=== PATIENT | female | born 1930 | race Hispanic/Latino ===

== ENCOUNTER 2017-01-29 12:12 | Inpatient (IN) | payer MEDICARE, BC ==
[2017-01-29 12:18] VITALS: BMI 18.6
[2017-01-29] MEDS ORDERED: TDAP Vaccine 0.5 mL Syr IM ONE (13:02)
[2017-01-29] MEDS ORDERED: Sodium Chloride 0.9% 500 ML IV STA (13:02)
--- NOTE | 2017-01-29 13:15 | ED PDOC ---
Arrival/HPI - General Chief Complaint: Trauma Time Seen by Provider: 01/29/17 12:57 Historian: Patient - Critical Care Critical Care Minutes: 30 minutes - History of Present Illness Narrative History of Present Illness (Text): 01/29/17 12:49 Sirena Alicea is an 86 year old female, whose past medical history includes severe peripheral vascular disease, hypertension, chronic kidney disease, and hyperlipidemia, who presents to the emergency department complaining of a syncopal episode prior to arrival. Patient was found in kitchen but cannot recall event. Patient is now complaining of bilateral upper extremity discomfort , headache, and nausea. Patient denies any other complaints at this time. PMD: Dr. Green Time/Duration: Prior to Arrival Symptom Course: Unchanged Activities at Onset: Light Context: Home Past Medical History - Provider Review Nursing Documentation Reviewed: Yes - Infectious Disease Hx of Infectious Diseases: None - Tetanus Immunization Tetanus Immunization: Unknown - Cardiac Hx Hypertension: Yes - Pulmonary Hx Chronic Obstructive Pulmonary Disease (COPD): Yes - Neurological Hx Neurological Disorder: No - HEENT Hx HEENT Disorder: Yes (WEARS RX GLASSES FOR READING) - Renal Hx Renal Disorder: Yes - Endocrine/Metabolic Hx Hypothyroidism: Yes - Hematological/Oncological Hx Blood Disorders: Yes Hx Anemia: Yes - Integumentary Hx Dermatological Disorder: Yes (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 - Anesthesia Hx Anesthesia: Yes Hx Anesthesia Reactions: No Hx Malignant Hyperthermia: No - Suicidal Assessment Feels Threatened In Home Enviroment: No Family/Social History - Physician Review Nursing Documentation Reviewed: Yes Family/Social History: No Known Family HX Smoking Status: Former Smoker Hx Alcohol Use: No Hx Substance Use: No Hx Substance Use Treatment: No Allergies/Home Meds Allergies/Adverse Reactions: Allergies Penicillins Allergy (Verified 04/01/16 11:13) ANAPHYLAXIS Home Medications: Home Meds Medication Instructions Recorded Confirmed Aspirin [Aspirin Chewable] 81 mg PO DAILY 03/04/13 04/02/16 Losartan [Cozaar] 100 mg PO DAILY 03/04/13 01/29/17 Vitamin D 50, 000 50,000 iu PO MON 03/04/13 01/29/17 Albuterol Sulfate [Proair 90 mcg IH Q6H PRN 03/29/16 04/02/16 Respiclick] Allopurinol [Zyloprim] 100 mg PO DAILY 03/29/16 01/29/17 Atorvastatin [Lipitor] 80 mg PO DAILY 03/29/16 04/02/16 Clopidogrel [Plavix] 75 mg PO DAILY 03/29/16 04/02/16 Fluticasone Propionate [Flonase] 2 spr NS DAILY 03/29/16 04/02/16 Furosemide [Lasix] 40 mg PO DAILY 03/29/16 04/02/16 LORazepam [Ativan] 0.5 mg PO DAILY PRN 03/29/16 04/02/16 Levothyroxine [Synthroid] 0.025 mg PO DAILY 03/29/16 01/29/17 Nicotine 14 mg/24 hr [Nicoderm CQ] 14 mg TD DAILY 03/29/16 04/02/16 Pantoprazole [Protonix EC Tab] 40 mg PO DAILY 03/29/16 01/29/17 Sodium Bicarbonate Tab 650 mg PO Q4H PRN 03/29/16 04/02/16 Thiamine Mononitrate [Vitamin B-1] 100 mg PO DAILY 03/29/16 01/29/17 amLODIPine [Norvasc] 10 mg PO DAILY 03/29/16 01/29/17 carBAMazepine [Tegretol] 200 mg PO DAILY 03/29/16 04/02/16 cloNIDine [Catapres] 0.1 mg PO BID PRN 03/29/16 01/29/17 oxyCODONE/Acetaminophen [Percocet 1 tab PO BID 03/29/16 01/29/17 5/325 mg Tab] Paricalcitol [Zemplar] 1 cap PO QOTHERDAY 01/29/17 01/29/17 Physical Exam - Physical Exam Narrative Physical Exam (Text): - Review of Systems Constitutional: Syncopal Episode. absent: Fatigue, Weight Change, Fevers Eyes: Normal ENT: Normal Respiratory: Normal absent: SOB, Cough, Sputum Cardiovascular: Normal absent: Chest pain, Palpitations, Syncope Gastrointestinal: Nausea. absent: Abdominal pain, Diarrhea, Vomiting Genitourinary: Normal. absent: Dysuria, Frequency, Hematuria Musculoskeletal: Upper extremity discomfort. absent: Arthralgias, Back Pain, Neck Pain Skin: Normal Neurological: Headache. absent: Focal Weakness Endocrine: Normal Hemo/Lymphatic: Normal Psychiatric: Normal - Physical exam Patient appears age appropriate, speaking full sentences without difficulty - Systems Exam Head: Present: Atraumatic, Normocephalic Pupils: Present: PERRL Extraocular Muscles: Present: EOMI Conjunctiva: Present: Normal Mouth: Present: Moist Mucous Membranes Neck: Present: Normal Range of Motion. No: MIDLINE TENDERNESS, Paraspinal Tenderness Respiratory/Chest: Present: Clear to Auscultation, Good Air Exchange. No: Respiratory Distress, Accessory Muscle Use, Tachypnic Cardiovascular: Present: Regular Rate and Rhythm, Normal S1, S2, Peripheral Pulses Present. No: Murmurs Abdomen: Present: Normal Bowel Sounds, No: Tenderness, Peritoneal Signs, Rebound, Guarding, Distention Back: Present: Normal Inspection. No: Midline Tenderness, Paraspinal Tenderness Upper Extremity: Present: Normal Inspection. No: Cyanosis, Edema Lower Extremity: Present: Normal Inspection. No: Edema Neurological: Present: GCS=15, Speech Normal, cranial nerves II through XII fully intact with no cerebellar abnormality, neuro-sensory fully intact. No focal neurological deficits. Skin: Multiple superficial abrasions and skin avulsions to bilateral upper extremities. Non-suturable. Lymphatic: Present: OX3, NI, NC Psychiatric: Present: Alert, Oriented x 3, Normal Insight, Normal Concentration Head atraumatic. No nasal bone deformity or tenderness, no facial or jaw pain/ swelling. No neck midline tenderness, thoracic and lumbar spine with no midline tenderness. Pt moving b/l upper and lower extremities without difficulty, 5/5 strength, with full active and passive ROM. Distal neurovasc fully intact. Abd soft/nt/nd, no hematomas, no peritoneal signs. Neg. pelvic rock. Vital Signs Reviewed: Yes Vital Signs Temp Pulse Resp BP Pulse Ox 01/29/17 12:36 91 H 98 01/29/17 12:25 97.8 F 18 118/72 Temperature: Afebrile Blood Pressure: Normal Respiratory Rate: Normal Mental Status: Positive for: Alert and Oriented X 3 Medical Decision Making ED Course and Treatment: 01/29/17 12:49 Impression: 86 year old female complaining of a syncopal episode prior to arrival. No focal neurological deficits on exam. Plan: -- EKG -- Head CT w/o contrast -- Chest X-ray -- Left Elbow X-ray -- Right Elbow X-ray -- Bilateral Hip X-ray -- Labs -- Tylenol, TDAP Vaccine, and IV Fluids -- Reassess and disposition Prior Visits: Notes and results from previous visits were reviewed. Patient last seen in the ED on 03/28/16 for dizziness for one day. Patient was admitted to hospitalist care for further evaluation. Progress Notes: EKG shows NSR at 86 BPM with LBBB. No change from previous on 04/02/16. Interpreted by me. 01/29/17 14:[address] Green, who asks to admit patient to his service with Dr. Villanueva on consult. Dr. Green evaluated patient in emergency department . 01/29/17 14:34 Chest X-ray: Dictator : Blair Alcantar MD FINDINGS: LUNGS:There is a minimal interstitial infiltrate in the right lower lobe which could represent an early pneumonia PLEURA:No pneumothorax or pleural fluid seen. CARDIOVASCULAR:Normal. OSSEOUS STRUCTURES:No significant abnormalities. VISUALIZED UPPER ABDOMEN:Normal. OTHER FINDINGS:None. IMPRESSION: There is a minimal interstitial infiltrate in the right lower lobe which could represent an early pneumonia 01/29/17 14:[address]: Dictator : Blair Alcantar MD FINDINGS: HEMORRHAGE:No intracranial hemorrhage. BRAIN:No mass effect or edema. There is a chronic area of encephalomalacia in the left occipital lobe. No acute findings VENTRICLES:Unremarkable. No hydrocephalus. CALVARIUM:Unremarkable. PARANASAL SINUSES:Unremarkable as visualized. No significant inflammatory changes. MASTOID AIR CELLS:Unremarkable as visualized. No inflammatory changes. OTHER FINDINGS:None. IMPRESSION: No acute intracranial findings 01/29/17 14:38 Left Elbow X-ray: Dictator : Blair Alcantar MD FINDINGS: BONES:Normal. No fracture. JOINTS:Normal. No osteoarthritis. SOFT TISSUES:Normal. JOINT EFFUSION:None. OTHER FINDINGS:None IMPRESSION: Unremarkable radiographs of the left elbow. 01/29/17 14:39 Right Elbow X-ray: Dictator : Blair Alcantar MD FINDINGS: BONES:Normal. No fracture. JOINTS:Normal. No osteoarthritis. SOFT TISSUES:Normal. JOINT EFFUSION:None. OTHER FINDINGS:None. IMPRESSION: Unremarkable radiographs of the right elbow. 01/29/17 14:40 Pelvis and Bilateral Hips X-ray: Dictator : Blair Alcantar MD FINDINGS: BONES: Pelvis: Unremarkable. Right hip:There is a right hip prosthesis with no fracture or loosening. Left hip:Unremarkable. JOINTS: Right hip: Prosthesis Left hip: Unremarkable. Sacroiliac Joints: Unremarkable. Pubic symphysis: Unremarkable. SOFT TISSUES:Vascular stent OTHER FINDINGS:None. IMPRESSION: Unremarkable radiographs of the hips and pelvis. 01/29/17 14:50 - Lab Interpretations Lab Results: 01/29/17 13:28 01/29/17 13:28 Lab Results 01/29/17 14:02: Urine Color Yellow, Urine Appearance Sl cloudy, Urine pH 7.0, Ur Specific [place] 1.025, Urine Protein >=300 H, Urine Glucose (UA) Negative, Urine Ketones Negative, Urine Blood Moderate H, Urine Nitrate Negative, Urine Bilirubin Negative, Urine Urobilinogen 0.2, Ur Leukocyte Esterase Trace H, Urine RBC 0 - 2, Urine WBC 5 - 10, Ur Epithelial Cells 1 - 3, Urine Bacteria Large 01/29/17 13:28: Sodium 138, Potassium 6.4 H* D, Chloride 103, Carbon Dioxide 25 , Anion Gap 16, BUN 81 H, Creatinine 2.7 H, Est GFR ( Amer) 20, Est GFR ( Non-Af Amer) 17, Random Glucose 131 H, Calcium 11.1 H, Total Bilirubin 0.6, AST 63 H, ALT 36, Alkaline Phosphatase 140 H, Lactate Dehydrogenase 1555 H, Total Creatine Kinase 780 H, CK-MB (CK-2) 10.2 H, CK-MB (CK-2) % 1.3 L, Troponin I 0.19 H* D, Total Protein 7.9, Albumin 3.7, Globulin 4.2, Albumin/Globulin Ratio 0.9 L 01/29/17 13:28: WBC 14.3 H D, RBC 4.18, Hgb 12.1, Hct 36.2, MCV 86.6, MCH 28.9, MCHC 33.4, RDW 15.0 H, Plt Count 362, MPV 9.5, Gran % 89.3 H, Lymph % (Auto) 2.5 L, [place] % (Auto) 8.1 H, Eos % (Auto) 0.0 L, Baso % (Auto) 0.1, Gran # 12.74 H, Lymph # 0.4 L, [place] # 1.2 H, Eos # 0.0, Baso # 0.02 01/29/17 13:28: PT 11.4, INR 1.06, APTT 29.1 I have reviewed the lab results: Yes - RAD Interpretation Radiology Orders: 01/29/17 13:03 HEAD W/O CONTRAST [CT] Stat CHEST ONE VIEW [RAD] Stat 01/29/17 13:04 ELBOW LEFT 3 VIEWS ROUTINE [RAD] Stat ELBOW RIGHT 3 VIEWS ROUTINE [RAD] Stat HIP MIN 2V W/ PELVIS FAHAD [RAD] Stat - Medication Orders Current Medication Orders: Sodium Chloride (Sodium Chloride 0.9%) 1,000 mls @ 1,000 mls/hr IV .Q1H STA Stop: 01/29/17 14:51 Last Admin: 01/29/17 14:47 Dose: 1,000 mls/hr Ceftriaxone Sodium (Rocephin 1 Gram Ivpb) 100 mls @ 200 mls/hr IV STAT STA PRN Reason: Protocol Stop: 01/29/17 15:14 Azithromycin (Zithromax 500mg In Ns) 250 mls @ 166.667 mls/hr IV STAT STA PRN Reason: Protocol Stop: 01/29/17 16:14 Discontinued Medications Acetaminophen (Tylenol 325mg Tab) 975 mg PO STAT STA Stop: 01/29/17 13:03 Last Admin: 01/29/17 14:46 Dose: 975 mg Albuterol Sulfate (Albuterol 0.5% Inhal Amparo (2.5 Mg/0.5 Ml) Ud) 2.5 mg IH STAT STA Stop: 01/29/17 13:53 Last Admin: 01/29/17 14:46 Dose: 2.5 mg Dextrose (Dextrose 50% Inj) 100 ml IVP STAT STA Stop: 01/29/17 13:53 Last Admin: 01/29/17 14:46 Dose: 100 ml Sodium Chloride (Sodium Chloride 0.9%) 500 mls @ 1,000 mls/hr IV .Q30M STA Stop: 01/29/17 13:31 Last Admin: 01/29/17 13:22 Dose: 1,000 mls/hr Insulin Human Regular (Humulin R) 10 units IV STAT STA Stop: 01/29/17 13:53 Last Admin: 01/29/17 14:46 Dose: 10 units Sodium Bicarbonate (Sodium Bicarbonate (8.4%) 50 Meq Syringe) 50 meq IVP ONCE ONE Stop: 01/29/17 13:53 Last Admin: 01/29/17 14:45 Dose: 50 meq Sodium Polystyrene Sulfonate (Kayexalate Oral Susp) 30 gm PO STAT STA Stop: 01/29/17 13:53 Last Admin: 01/29/17 14:47 Dose: 30 gm Tetanus/Reduced Diphtheria/Acell Pertussis (Boostrix Vaccine Inj) 0.5 ml IM .ONCE ONE Stop: 01/29/17 13:03 Last Admin: 01/29/17 14:45 Dose: 0.5 ml - Scribe Statement The provider has reviewed the documentation as recorded by the Isauraibbert Johnson Provider Scribe Attestation: All medical record entries made by the Scribe were at my direction and personally dictated by me. I have reviewed the chart and agree that the record accurately reflects my personal performance of the history, physical exam, medical decision making, and the department course for this patient. I have also personally directed, reviewed, and agree with the discharge instructions and disposition. Disposition/Present on Arrival - Present on Arrival Any Indicators Present on Arrival: No History of DVT/PE: No History of Uncontrolled Diabetes: No Urinary Catheter: No History of Decub. Ulcer: No History Surgical Site Infection Following: None - Disposition Have Diagnosis and Disposition been Completed?: Yes Diagnosis: Hyperkalemia, Syncope Disposition: HOSPITALIZED Disposition Time: 14:48 Patient Plan: Admission Patient Problems: Current Active Problems Problem Status Onset Hyperkalemia Acute Syncope Acute Condition: FAIR Discharge Instructions (ExitCare): Syncope (ED) Referrals: PCP,NO [Primary Care Provider] - Follow up with primary Forms: [employer] ([place])
[2017-01-29 13:33] LABS: BASO # 0.02 K/mm3 (0.0-2.0); BASO % 0.1 % (0.0-3.0); GRAN # 12.74 (1.4-6.5); GRAN % 89.3 % (50.0-68.0); HEMOGLOBIN 12.1 g/dL (12.0-16.0); LYMPH # 0.4 (1.2-3.4); LYMPH % 2.5 % (22.0-35.0); MEAN CELL VOLUME 86.6 fl (80.0-105.0); MEAN CORPUSCULAR HEMOGLOBIN 28.9 pg (25.0-35.0); MEAN CORPUSCULAR HGB CONC 33.4 g/dl (31.0-37.0); MEAN PLATELET VOLUME 9.5 fl (7.0-11.0); MONO # 1.2 (0.1-0.6); MONO % 8.1 % (1.0-6.0); PLATELET COUNT 362 10^3/uL (120.0-450.0); RBC 4.18 10^6/uL (3.5-6.1); WHITE BLOOD COUNT 14.3 10^3/ul (4.5-11.0)
[2017-01-29 13:45] LABS: INR 1.06 (0.93-1.08); PARTIAL THROMBOPLASTIN TIME 29.1 Seconds (23.7-30.8); PROTHROMBIN TIME 11.4 Seconds (9.9-11.8)
[2017-01-29 13:47] LABS: ALB/GLOB RATIO 0.9 (1.1-1.8); ALBUMIN 3.7 g/dL (3.0-4.8); CALCIUM 11.1 mg/dL (8.4-10.5)
[2017-01-29] MEDS ORDERED: Dextrose 50% SYRINGE Inj (50 ml) IVP STA (13:52)
[2017-01-29] MEDS ORDERED: Insulin Regular 1 UNITS/0.01 ML ML IV STA (13:52)
[2017-01-29] MEDS ORDERED: Sodium Bicarbonate (8.4%) 50 Meq Syringe IVP ONE (13:52)
[2017-01-29] MEDS ORDERED: Sodium Chloride 0.9% 1,000 ML IV STA (13:52)
[2017-01-29] MEDS ORDERED: Sod Polystyrene Sulf 15 gm/60 ml Oral Susp PO STA (13:52)
[2017-01-29] MEDS ORDERED: Albuterol 0.5% Inhal Sol (2.5 mg/0.5 ml) UD IH STA (13:52)
--- NOTE | 2017-01-29 14:00 | CT ---
PROCEDURE: CT HEAD WITHOUT CONTRAST. HISTORY: fall COMPARISON: 03/28/2016 TECHNIQUE: Axial computed tomography images were obtained through the head/brain without intravenous contrast. Radiation dose: Total exam DLP = 712 mGy-cm. This CT exam was performed using one or more of the following dose reduction techniques: Automated exposure control, adjustment of the mA and/or kV according to patient size, and/or use of iterative reconstruction technique. FINDINGS: HEMORRHAGE: No intracranial hemorrhage. BRAIN: No mass effect or edema. There is a chronic area of encephalomalacia in the left occipital lobe. No acute findings VENTRICLES: Unremarkable. No hydrocephalus. CALVARIUM: Unremarkable. PARANASAL SINUSES: Unremarkable as visualized. No significant inflammatory changes. MASTOID AIR CELLS: Unremarkable as visualized. No inflammatory changes. OTHER FINDINGS: None. IMPRESSION: No acute intracranial findings
[2017-01-29 14:03] LABS: CK MB% 1.3 % (2.5-3.0); CK-MB 10.2 ng/mL (0.0-3.6)
[2017-01-29 14:07] LABS: URINE BILIRUBIN NEGATIVE (NEGATIVE); URINE BLOOD MODERATE (NEGATIVE); URINE GLUCOSE (UA) NEGATIVE (NEGATIVE); URINE LEUKOCYTE ESTERASE TRACE Leu/uL (NEGATIVE); URINE NITRATE NEGATIVE (NEGATIVE); URINE PROTEIN >=300 mg/dL (<30 mg/dL); URINE UROBILINOGEN 0.2 E.U./dL (<1 E.U./dL)
[2017-01-29 14:09] LABS: URINE APPEARANCE SL CLOUDY (CLEAR); URINE COLOR YELLOW (YELLOW)
[2017-01-29 14:18] LABS: URINE BACTERIA LARGE (NEG); URINE RBC 0 - 2 /hpf (0-2)
--- NOTE | 2017-01-29 14:24 | RAD ---
PROCEDURE: CHEST RADIOGRAPH, 1 VIEW HISTORY: cough COMPARISON: 03/28/2016 FINDINGS: LUNGS: There is a minimal interstitial infiltrate in the right lower lobe which could represent an early pneumonia PLEURA: No pneumothorax or pleural fluid seen. CARDIOVASCULAR: Normal. OSSEOUS STRUCTURES: No significant abnormalities. VISUALIZED UPPER ABDOMEN: Normal. OTHER FINDINGS: None. IMPRESSION: There is a minimal interstitial infiltrate in the right lower lobe which could represent an early pneumonia
--- NOTE | 2017-01-29 14:26 | RAD ---
PROCEDURE: Radiographs of the left elbow. HISTORY: fall COMPARISON: No prior. FINDINGS: BONES: Normal. No fracture. JOINTS: Normal. No osteoarthritis. SOFT TISSUES: Normal. JOINT EFFUSION: None. OTHER FINDINGS: None IMPRESSION: Unremarkable radiographs of the left elbow.
--- NOTE | 2017-01-29 14:28 | RAD ---
PROCEDURE: Radiographs of the right elbow. HISTORY: fall COMPARISON: No prior. FINDINGS: BONES: Normal. No fracture. JOINTS: Normal. No osteoarthritis. SOFT TISSUES: Normal. JOINT EFFUSION: None. OTHER FINDINGS: None. IMPRESSION: Unremarkable radiographs of the right elbow.
--- NOTE | 2017-01-29 14:30 | RAD ---
PROCEDURE: Radiographs of the pelvis and bilateral hips HISTORY: fall COMPARISON: None. FINDINGS: BONES: Pelvis: Unremarkable. Right hip:There is a right hip prosthesis with no fracture or loosening. Left hip:Unremarkable. JOINTS: Right hip: Prosthesis Left hip: Unremarkable. Sacroiliac Joints: Unremarkable. Pubic symphysis: Unremarkable. SOFT TISSUES: Vascular stent OTHER FINDINGS: None. IMPRESSION: Unremarkable radiographs of the hips and pelvis.
[2017-01-29 14:33] LABS: TROPONIN I 0.19 ng/mL
[2017-01-29] MEDS ORDERED: Azithromycin 500MG/NS 250ml 500 MG/250 ML BAG IV STA (14:45)
[2017-01-29] MEDS ORDERED: cefTRIAXone 1 gm 1 GM/100 ML BAG IV STA (14:45)
--- NOTE | 2017-01-29 16:21 | CARD ---
APPROVED REPORT EKG Measurement Heart [id number] DE [id number] <Conclusion> Normal sinus rhythm Left bundle branch block Abnormal ECG
[2017-01-29] MEDS: Albuterol-Ipratrop 3 mg / 0.5 (3 ml) UD IH SCH (18:20)
[2017-01-29 22:02] LABS: TROPONIN I 0.63 ng/mL
[2017-01-29] MEDS ORDERED: Vancomycin 1gm in NS 250ml 1 GM/250 ML BAG IVPB STA (22:19)
[2017-01-29 22:26] LABS: CK MB% 1.2 % (2.5-3.0); CK-MB 8.2 ng/mL (0.0-3.6)
[2017-01-30] MEDS: Aztreonam 1 Gm in NS 100mL 100 ML IVPB SCH ×2 (00:29→05:04)
[2017-01-30] MEDS: Albuterol-Ipratrop 3 mg / 0.5 (3 ml) UD IH SCH ×5 (01:13→19:42)
--- NOTE | 2017-01-30 03:49 | HP ---
HISTORY OF PRESENT ILLNESS: Patient is seen in the emergency room. She was brought into the emergency room with a history of syncope. Patient was found on the floor, had a fall, and she does not know what happened. The patient was able to talk afterwards. She said she just collapsed and she does not know how it happened. She has abrasion on the right upper arm, superficial. The patient also complains of nausea and vomiting, which are symptoms that have occurred soon after the event. The patient has past history that is significant. She has been treated for coronary artery disease. She has stent in the coronary artery. She has history of peripheral vascular disease. She has also had femoral popliteal bypass; stenting of the femoral artery for peripheral vascular disease. 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 Patient also has chronic obstructive lung disease, hypothyroidism, gastritis, peptic ulcer disease and chronic gout. Patient has history of depression, anxiety, degenerative arthritis with multiple joints, especially the knees of both joints involved. Patient has renal insufficiency and has been treated by Dr. Villanueva, the awning frame maker. She has also been treated by Dr. Manish Leggett, orthopedic surgeon for ascites and pain in the knees and joints. Patient has been hospitalized many times. ALLERGIES: SHE HAS HISTORY OF BEING ALLERGIC TO PENICILLIN. PHYSICAL EXAMINATION: GENERAL: On examination, the patient is in the emergency room. She is able to talk and explain. She says she does not know what happened. However, she had evidence of injury to the right arm with abrasion and peeling of the skin. Patient is conscious. She is oriented to place, time, and person. HEENT: On examination, the head is normocephalic. No evidence of injury of the head noted. NECK: Thyroid is not clinically enlarged. JVP is flat. Carotid pulses are present bilaterally. CARDIOPULMONARY: Patient's heart is normal sinus rhythm, S1 and S2 present. Patient has no murmurs, no rubs. The O2 sat is 98% on room air. LUNGS: Examination of lungs, trachea is central. Breath sounds are diminished bilaterally. There is no evidence of any adventitious sounds except occasional rhonchi in the lower part of the lung. Patient's chest x-ray shows evidence of pneumonia. ABDOMEN: Examination of the abdomen is soft. Liver and spleen not palpable. There is no ascites and no localizing tenderness. PRIZE COORDINATOR: She is conscious, rational. She has no focal neurological deficits excepting generalized weakness. LABORATORY DATA: The patient's blood work shows the white count is 14,300; WBC shift to the left, polymorphonucleocytes about 90%. Patient's chemistry, the patient's creatinine is 2.7, BUN is 81, potassium is 6.4, which is markedly elevated, glucose is 131. Patient's calcium is 11.1. Lactic dehydrogenase is 1555, which is elevated. Patient's troponin is elevated. Patient has renal insufficiency. Patient's cardiac enzymes, CPK-MB fraction is 10.2. Patient's urinalysis shows specific gravity of 1.025. She has moderate amount of blood in the urine and white cells number from 5 to 10. IMPRESSION AND PLAN: The patient is admitted with acute on chronic renal failure, syncope, patient has evidence of SIRS and possible pneumonia of the lung. Patient will be admitted to the telemetry floor. Consultations are ordered with Dr. Villanueva, awning frame maker, Dr. Chaidez, admissions manager. Patient will be seen by infectious disease cosmetic sales consultant and the patient will be treated for the abrasions on the arm locally with antibiotics and also dressing. Overall, prognosis is guarded. Condition is, at this time, stable. Quita Green MD MTDD
[2017-01-30 05:49] LABS: BASO # 0.02 K/mm3 (0.0-2.0); BASO % 0.2 % (0.0-3.0); EOS % 0.2 % (1.5-5.0); GRAN # 6.64 (1.4-6.5); GRAN % 81.2 % (50.0-68.0); HEMOGLOBIN 10.4 g/dL (12.0-16.0); LYMPH # 0.7 (1.2-3.4); LYMPH % 8.9 % (22.0-35.0); MEAN CELL VOLUME 87.1 fl (80.0-105.0); MEAN CORPUSCULAR HEMOGLOBIN 28.5 pg (25.0-35.0); MEAN CORPUSCULAR HGB CONC 32.7 g/dl (31.0-37.0); MEAN PLATELET VOLUME 9.7 fl (7.0-11.0); MONO # 0.8 (0.1-0.6); MONO % 9.5 % (1.0-6.0); PLATELET COUNT 288 10^3/uL (120.0-450.0); RBC 3.65 10^6/uL (3.5-6.1); RED CELL DISTRIBUTION WIDTH 15.2 % (11.5-14.5); WHITE BLOOD COUNT 8.2 10^3/ul (4.5-11.0)
[2017-01-30 06:07] LABS: CALCIUM 9.7 mg/dL (8.4-10.5)
[2017-01-30 07:12] LABS: TROPONIN I 0.86 ng/mL
[2017-01-30 07:36] LABS: CK MB% 1.1 % (2.5-3.0); CK-MB 5.8 ng/mL (0.0-3.6)
--- NOTE | 2017-01-30 08:03 | CP.PCM.CON ---
<Sarahi Cedeño - Last Filed: 01/30/17 14:55> History of Present Illness - History of Present Illness History of Present Illness: PGY-[address] Guillen ID consult: Leukocytosis 86 F, living alone at home, with a PMH of PAD, CAD with stent, CKD stage 3 Hx of solitary kidney, was admitted after a fall. At night, pt states that she "slipped" down from her bed. She could not remember how exactly it happened or whether she lost consciousness. For the duration of the night, she was laying on the floor and could not get up. In the morning, she shout for her neighbor who alerted the grandson, who found the pt on kitchen floor with face down. EMS brought her to the ED. ED note was reviewed and reported 1 episode of emesis. Pt sustained abrasion on R arm and bruises on all extremities. Patient states that she had dry cough x 1-2 days. Denies runny nose, sore throat, phlegm, CP, SOB, diarrhea/constipation, dysuria. Denies recent antibiotics/travel. Upon ED arrival VSS. 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 Villanueva Depression, anxiety (?) ascites DJD (multiple) - Dr. Manish Robert, orthopedisc surgeon PS CABG thoracenteis 12/2015 b/l pleural effusion Ex lap small bowel resection and anastomsos 12/2015 due to retroperitomeal bleed during the recovery period of R leg angioplasy with fem-pop stent due to ischemic limb Ventral hernia repair 02/2013 Appendectomy 2008 SH Denies drink/drug/smoke lives alone Son in [place] Grandchild occassionally visit grocery delivered home All - Penicillin - "tongue swell up" Med - See JOSÉ PMD - Dr. 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 Villanueva Outpt orthopedisc surgeon - Dr. Manish Robert Past Patient History - Infectious Disease Hx of Infectious Diseases: None - Tetanus Immunizations Tetanus Immunization: Unknown - Past Social History Smoking Status: Former Smoker - CARDIAC Hx Cardiac Disorders: Yes Hx Hypertension: Yes - PULMONARY Hx Respiratory Disorders: Yes Hx Chronic Obstructive Pulmonary Disease (COPD): Yes - NEUROLOGICAL Hx Neurological Disorder: No - HEENT Hx HEENT Problems: No - RENAL Hx Chronic Kidney Disease: No - ENDOCRINE/METABOLIC Hx Endocrine Disorders: Yes Hx Hypothyroidism: Yes - HEMATOLOGICAL/ONCOLOGICAL Hx Blood Disorders: Yes Hx Anemia: Yes - INTEGUMENTARY Hx Dermatological Problems: No - MUSCULOSKELETAL/RHEUMATOLOGICAL Hx Musculoskeletal Disorders: Yes Hx Arthritis: Yes Hx Falls: No - GASTROINTESTINAL Hx Gastrointestinal Disorders: No - GENITOURINARY/GYNECOLOGICAL Hx Genitourinary Disorders: No - PSYCHIATRIC Hx Psychophysiologic Disorder: No Hx Substance Use: No - SURGICAL HISTORY Hx Surgeries: Yes Hx Appendectomy: Yes Hx Coronary Stent: Yes Hx Orthopedic Surgery: Yes (R. Hip Replacement) - ANESTHESIA Hx Anesthesia: Yes Hx Anesthesia Reactions: No Hx Malignant Hyperthermia: No Meds Allergies/Adverse Reactions: Allergies Allergy/AdvReac Type Severity Reaction Status Date / Time Penicillins Allergy ANAPHYLAXIS Verified 04/01/16 11:13 - Medications Medications: Current Medications Albuterol/Ipratropium (Duoneb 3 Mg/0.5 Mg (3 Ml) Ud) 3 ml Q6H [facility] Last Admin: 01/30/17 01:37 Dose: 3 ml Amlodipine Besylate (Norvasc) 10 mg PO DAILY [facility] Aspirin (Aspirin Chewable) 81 mg PO DAILY [facility] Atorvastatin Calcium (Lipitor) 80 mg PO DAILY [facility] Clopidogrel Bisulfate (Plavix) 75 mg PO DAILY [facility] Aztreonam (Azactam 1 Gm) 100 mls @ 100 mls/hr IVPB Q8 [facility] PRN Reason: Protocol Stop: 02/05/17 22:31 Last Admin: 01/30/17 05:04 Dose: Not Given Doxycycline Hyclate 100 mg/ (Sodium Chloride) 100 mls @ 100 mls/hr IVPB Q12 [facility] PRN Reason: Protocol Last Admin: 01/30/17 01:28 Dose: 100 mls/hr Levothyroxine Sodium (Synthroid) 25 mcg PO DAILY [facility] Lorazepam (Ativan) 0.5 mg PO DAILY PRN; Protocol PRN Reason: Anxiety Last Admin: 01/30/17 02:00 Dose: 0.5 mg Losartan Potassium (Cozaar) 100 mg PO DAILY [facility] Pantoprazole Sodium (Protonix Ec Tab) 40 mg PO DAILY [facility] Physical Exam - Constitutional Appears: No Acute Distress - Head Exam Head Exam: ATRAUMATIC, NORMAL INSPECTION, NORMOCEPHALIC - Eye Exam Eye Exam: EOMI, Normal appearance, PERRL. absent: Scleral icterus Pupil Exam: NORMAL ACCOMODATION - ENT Exam ENT Exam: Mucous Membranes Moist - Neck Exam Additional comments: supple - Respiratory Exam Respiratory Exam: Clear to Auscultation Bilateral. absent: Rales, Rhonchi, Wheezes - Cardiovascular Exam Cardiovascular Exam: REGULAR RHYTHM, +S1, +S2 - GI/Abdominal Exam GI & Abdominal Exam: Normal Bowel Sounds, Soft. absent: Distended, Firm, Guarding, Rigid - Extremities Exam Extremities exam: Negative for: pedal edema Additional comments: cap refil < 2 sec. Multiple ecchymosis with skin abrasion b/l - Back Exam Back exam: absent: CVA tenderness (L), CVA tenderness (R), vertebral tenderness - Neurological Exam Neurological exam: Alert - Psychiatric Exam Psychiatric exam: Anxious - Skin Skin Exam: Dry, Warm Additional comments: ecchymosis on L hip. all extremities. Dressing on R arm/forearm/hand intact Results - Vital Signs Recent Vital Signs: Last Vital Signs Temp 98.3 F 01/30/17 05:47 Pulse 78 01/30/17 06:00 Resp 18 01/30/17 05:47 BP 111/67 01/30/17 05:47 Pulse Ox 93 L 01/30/17 05:47 - Labs Result Diagrams: 01/30/17 05:20 01/30/17 05:20 Labs: Laboratory Results - last 24 hr 01/29/17 01/30/17 01/30/17 21:25 05:20 05:20 WBC 8.2 D RBC 3.65 Hgb 10.4 L Hct 31.8 L MCV 87.1 MCH 28.5 MCHC 32.7 RDW 15.2 H Plt Count 288 MPV 9.7 Gran % 81.2 H Lymph % (Auto) 8.9 L Otoe % (Auto) 9.5 H Eos % (Auto) 0.2 L Baso % (Auto) 0.2 Gran # 6.64 H Lymph # 0.7 L Otoe # 0.8 H Eos # 0.0 Baso # 0.02 Sodium 139 Potassium 4.3 Chloride 110 Carbon Dioxide 23 Anion Gap 10 BUN 63 H Creatinine 2.2 H Est GFR ( Amer) 26 Est GFR (Non-Af Amer) 21 Random Glucose 116 H Calcium 9.7 Lactate Dehydrogenase 1275 H 1160 H Total Creatine Kinase 679 H 546 H CK-MB (CK-2) 8.2 H 5.8 H CK-MB (CK-2) % 1.2 L 1.1 L Troponin I 0.63 H* D 0.86 H* D Assessment & Plan - Assessment and Plan (Free Text) Plan: 86 F, living alone at home, with a PMH of PAD, CAD, CKD stage 3 Hx of solitary kidney, was admitted after an unwitness fall with prolonged lying on the floor face down. ID was consulted for leukocytosis, which is resolved now. Pt reported dry cough. - SIRS due to NATALIA on CKD vs NSTEMI vs Trauma from fall. leukocytosis is resolved now. - No evidence of sepsis or source of infection - r/o NSTEMI ongoing - mild transaminitis possibly reactive to NATALIA/CKD vs NSTENI, trauma from fall. r /o infection Plan - observe off antibiotics - pending urine, blood culture - Repeat CXR PA/LAT to get better view of R lower lobe - Pending Hep panel - Continue monitor clinical course s/r/d/w Dr. Guillen - Date & Time Date: 01/30/17 Time: 14:46 <Vasyl Guillen S - Last Filed: 01/31/17 06:13> Meds - Medications Medications: Current Medications Albuterol/Ipratropium (Duoneb 3 Mg/0.5 Mg (3 Ml) Ud) 3 ml IH Q6H [facility] Last Admin: 01/30/17 19:42 Dose: 3 ml Amlodipine Besylate (Norvasc) 10 mg PO DAILY [facility] Last Admin: 01/30/17 10:58 Dose: 10 mg Aspirin (Aspirin Chewable) 81 mg PO DAILY [facility] Last Admin: 01/30/17 10:58 Dose: 81 mg Atorvastatin Calcium (Lipitor) 80 mg PO DAILY [facility] Last Admin: 01/30/17 10:58 Dose: 80 mg Clopidogrel Bisulfate (Plavix) 75 mg PO DAILY [facility] Last Admin: 01/30/17 10:58 Dose: 75 mg Sodium Chloride (Sodium Chloride 0.9%) 1,000 mls @ 75 mls/hr IV .[id number] [facility] Last Admin: 01/31/17 00:41 Dose: 75 mls/hr Levothyroxine Sodium (Synthroid) 25 mcg PO DAILY [facility] Last Admin: 01/30/17 10:58 Dose: 25 mcg Lorazepam (Ativan) 0.5 mg PO DAILY PRN; Protocol PRN Reason: Anxiety Last Admin: 01/30/17 02:00 Dose: 0.5 mg Losartan Potassium (Cozaar) 100 mg PO DAILY [facility] Last Admin: 01/30/17 10:58 Dose: 100 mg Oxycodone/Acetaminophen (Percocet 5/325 Mg Tab) 1 tab PO BID PRN PRN Reason: Pain, moderate (4-7) Stop: 02/02/17 12:54 Last Admin: 01/30/17 20:14 Dose: 1 tab Pantoprazole Sodium (Protonix Ec Tab) 40 mg PO DAILY [facility] Last Admin: 01/30/17 10:58 Dose: 40 mg Results - Vital Signs Recent Vital Signs: Last Vital Signs Temp 97.6 F 01/31/17 06:00 Pulse 67 01/31/17 06:00 Resp 20 01/31/17 06:00 BP 111/59 L 01/31/17 06:00 Pulse Ox 93 L 01/31/17 06:00 - Labs Result Diagrams: 01/30/17 05:20 01/30/17 05:20 Labs: Laboratory Results - last 24 hr 01/30/17 05:20 Sodium 139 Potassium 4.3 Chloride 110 Carbon Dioxide 23 Anion Gap 10 BUN 63 H Creatinine 2.2 H Est GFR ( Amer) 26 Est GFR (Non-Af Amer) 21 Random Glucose 116 H Calcium 9.7 Lactate Dehydrogenase 1160 H Total Creatine Kinase 546 H CK-MB (CK-2) 5.8 H CK-MB (CK-2) % 1.1 L Troponin I 0.86 H* D Assessment & Plan - Assessment and Plan (Free Text) Plan: Infectious diseases Attending Physician Attestation Patient seen and examined, discussed with medical library assistant. I have reviewed the pertinent clinical information for this patient. I agree with the above findings , assessment and plan. We will monitor this patient off antibiotics and follow up cultures. The patient presented with Systemic Inflammatory Response Syndrome , probably from a fall, R/O NSTEMI. We currently have no evidence of infection. SIRS has also resolved.
--- NOTE | 2017-01-30 09:56 | PN ---
SUBJECTIVE: The patient was admitted yesterday via the emergency room. She presented with history of syncope. The patient was found by the grandson. She was on the kitchen floor with the face down. However, the patient could not recollect, when she was seen in the emergency room. She does not know what exactly happened to her. The patient's history is that she has a long history of atherosclerotic heart disease, peripheral vascular disease, degenerative arthritis, renal insufficiency, hypothyroidism, and gastritis. The patient has had procedures such as angioplasty, femoropopliteal bypass surgery, coronary angioplasty, and stenting of the coronary arteries. PHYSICAL EXAMINATION: GENERAL: The patient is seen this morning. She is awake. She is able to converse. VITAL SIGNS: Vial signs this morning, the patient's pulse is 78, blood pressure 110/70, respirations are 18, and O2 saturation at 93% on room air. The patient's temperature is 98.3. HEENT: Head is normocephalic. No evidence of any injuries as mentioned. NECK: Thyroid is not enlarged. She does have evidence of clinical hypothyroidism. HEART: Normal sinus rhythm. S1 and S2 present. LUNGS: Trachea is central. Breath sounds are vesicular. No adventitious sounds. ABDOMEN: Soft. Liver and spleen are not palpable. No tenderness. No masses. CENTRAL NERVOUS SYSTEMS: She is conscious, rational, and oriented. No focal neurological deficits LABORATORY DATA: The patient's lab work done this morning showed the creatinine is 2.2 and BUN is 63. The patient's potassium is down to 4.3, which is within normal range. LDH is 1160. The patient has abnormal creatine kinase enzyme. CPK-MB fraction is elevated at 5.8. Troponin is elevated at 2.86. These numbers could be abnormal because of the patient's chronic renal failure. MEDICATIONS: The patient is on medications. At this time, she is getting aspirin 81 mg daily, Ativan 0.5 mg p.r.n. for anxiety. She is on Azactam 1 g q.8 hours and losartan 100 mg daily. The patient is on doxycycline 100 mg b.i.d. q.12 hours IV. The patient is on respiratory treatment with DuoNeb. The patient also gets Lipitor 80 mg daily, amlodipine 10 mg daily, and Plavix 75 mg daily. The pantoprazole is 40 mg daily and Synthroid 25 mcg daily. PLAN: The patient's diet is renal and heart healthy diet. The patient will be seen by Dr. Villanueva, the operations support manager. She knows the patient very well and the Infectious Disease has already evaluated the patient and put the patient on antibiotic treatment. We will continue current management and followup. Quita Green MD MTDD
[2017-01-30] MEDS: Sodium Chloride 0.9% 1,000 ML IV SCH (10:46)
[2017-01-30] MEDS: Levothyroxine 25 MCG TAB PO SCH (10:58)
[2017-01-30] MEDS: Pantoprazole 40 mg EC Tab PO SCH (10:58)
[2017-01-30] MEDS: Oxycodone/Acetaminophen 5/325 mg Tab PO PRN ×2 (13:12→20:14)
--- NOTE | 2017-01-30 17:59 | CARD ---
APPROVED REPORT EXAM: Two-dimensional and M-mode echocardiogram with Doppler and color Doppler. INDICATION NSTEMI 2D DIMENSIONS Left Atrium (2D)4.3 (1.6-4.0cm)IVSd1.6 (0.7-1.1cm) LVDd4.9 (3.9-5.9cm)PWd1.7 (0.7-1.1cm) M-Mode DIMENSIONS Aortic Root3.20 (2.2-3.7cm)Aortic Cusp Exc.1.30 (1.5-2.0cm) Aortic Valve AoV Peak Ktvmhvnz392.0cm/Amna Peak GR.16mmHgAI P 1/2 [id number] Mitral Valve MV E Usyuwudx48.9cm/sMV A Rclzsitb03.5cm/sE/A ratio0.9 TDI E/Lateral E'0.0E/Medial E'0.0 Pulmonary Valve PV Peak Mduahfsh07.0cm/sPV Peak Grad.2mmHg Tricuspid Valve TR Peak [id number]/sRAP [id number] Peak Gr.38mmHg [id number] LEFT VENTRICLE The left ventricle is normal size. There is mild to moderate concentric left ventricular hypertrophy. The systolic function is mildly to moderately impaired.EF-35-40% There is mild to moderate hypokinesis in the apical anterior wall. Transmitral Doppler flow pattern is Grade III-reversible restrictive diastolic dysfunction. No left ventricle thrombus noted on this study. There is no ventricular septal defect visualized. There is no left ventricular aneurysm. There is no mass noted in the left ventricle. RIGHT VENTRICLE The right ventricle is normal size. There is normal right ventricular wall thickness. The right ventricular systolic function is normal. ATRIA The left atrium is mildly dilated. The right atrium size is normal. The interatrial septum is intact with no evidence for an atrial septal defect. AORTIC VALVE The aortic valve is calcified and displays decreased opening. There is mild to moderate aortic regurgitation. There is mild to moderate valvular aortic stenosis. There is no aortic valvular vegetation. MITRAL VALVE The mitral valve is thickened but opens well. Mitral regurgitation is trace to mild. There is no mitral valve stenosis. There is no evidence of mitral valve prolapse. TRICUSPID VALVE The tricuspid valve leaflets are thickened , but open well. There is mild to moderate tricuspid regurgitation.RVSP-48 mmof Hg. There is no tricuspid valve stenosis. There is no tricuspid valve prolapse or vegetation. PULMONIC VALVE The pulmonary valve is normal in structure. There is trace pulmonic valvular regurgitation. There is no pulmonic valvular stenosis. GREAT VESSELS The aortic root is normal in size. The ascending aorta is normal in size. The pulmonary artery is normal. The IVC is normal in size and collapses >50% with inspiration. PERICARDIAL EFFUSION There is no pleural effusion. There is a trace circumferential pericardial effusion. <Conclusion> The left ventricle is normal size. There is mild to moderate concentric left ventricular hypertrophy. The systolic function is mildly to moderately impaired.EF-35-40% There is mild to moderate aortic regurgitation. There is mild to moderate valvular aortic stenosis. Mitral regurgitation is trace to mild. There is mild to moderate tricuspid regurgitation.RVSP-48 mmof Hg. There is a trace circumferential pericardial effusion. The IVC is normal in size and collapses >50% with inspiration.
--- NOTE | 2017-01-30 22:04 | CON ---
DATE: 01/30/2017 REASON FOR CONSULTATION: Acute kidney injury, superimposed on chronic kidney disease stage IV, fall at home, elevated troponin. HISTORY OF PRESENT ILLNESS: An 86-year-old lady known to me from outpatient evaluation, hospital consult was admitted yesterday after a fall at home. The patient reports that she was home alone, was trying to sit on the bed and she slipped down at the edge of the bed. She reports that she stayed on the floor, was crawling all over the floor. She sustained an abrasion to her right upper arm, she also complains of nausea and vomiting. She had multiple x-rays done in the emergency room, which were all negative. No fracture was seen. Her creatinine was found to be elevated at 2.7. Her baseline creatinine is around 2.0. PAST MEDICAL AND SURGICAL HISTORY: Hypertension, chronic kidney disease stage IV, peripheral vascular disease, renal artery stenosis, CAD, PTCA and stent, fem-pop bypass, gangrene of the toes, COPD, hypothyroidism, peptic ulcer disease, retroperitoneal bleed, anemia, secondary hypoparathyroidism and osteoarthritis. FAMILY HISTORY: Noncontributory. SOCIAL HISTORY: The patient is a smoker. No alcohol use, no IV drug abuse. ALLERGIES: PENICILLIN. MEDICATIONS AT HOME: Losartan 100 mg daily, Zemplar 1 mcg every other day, clonidine 0.1 b.i.d., amlodipine 10, allopurinol 100, Synthroid 0.025, Tegretol, lorazepam, Lasix, Plavix and Lipitor. REVIEW OF SYSTEMS: The patient complains of pain all over the body, she denies any chest tightness. She denies any shortness of breath. All other systems are reviewed and unremarkable. PHYSICAL EXAMINATION: GENERAL: Thinly build, cachectic appearing, elderly lady lying in bed. VITAL SIGNS: Blood pressure 138/79, heart rate 74, respiratory rate 18 and temperature 98.3. HEENT: Normocephalic and atraumatic. Positive pallor. NECK: Supple. No JVD. LUNGS: Bilateral equal air entry, distant breath sounds. No rales appreciated. CARDIAC: S1 and S2, regular rate and rhythm. No murmur. No rub. ABDOMEN: Soft, nondistended and nontender. Bowel sounds present. EXTREMITIES: No lower extremity edema. Extensive ecchymoses on the upper and lower extremities. INTAKE AND OUTPUT: 570/300. LABORATORY DATA: WBC 8.2, hemoglobin 10.4, hematocrit 31.8 and platelets 288. Sodium 139, potassium 4.3, chloride 110, CO2 of 23, BUN 63, creatinine 2.2, glucose 116 and calcium 9.7. Troponin 0.19, second set 0.63, third set 0.86. Urine culture; gram-negative jamie. ASSESSMENT: 1. Acute kidney injury superimposed on chronic kidney disease stage-IV, largely prerenal azotemia. 2. Initial hyperkalemia, likely secondary to acute kidney injury, resolved. 3. Acute coronary syndrome. 4. Status post fall, ? syncope, ? arrhythmia. 5. Anemia. 6. Gram-negative urinary tract infection. 7. History of coronary artery disease. 8. History of hypertension. 9. Dementia. PLAN: 1. Continue IV fluids at 75 mL per hour for the time being. 2. Avoid further use of Kayexalate. 3. Cardiology followup. 4. Monitor H&H closely. 5. Avoid nephrotoxins. 6. Check stool occult. 7. Antibiotics as per ID recommendations. 8. Dose all antibiotics for creatinine clearance 30 to 50 mL per minute. Thank you for the courtesy of this consultation. We will follow this patient closely with you. Kia Villanueva MD
--- NOTE | 2017-01-30 22:39 | CON ---
DATE: 01/30/2017 CARDIOLOGY CONSULTATION REASON FOR CONSULTATION: Positive troponin, acute kidney injury, status post fall, cardiac evaluation. BRIEF CLINICAL HISTORY: An 86-year-old female with past medical history significant severe PAD, hypertension, chronic kidney disease, hyperlipidemia came to the emergency room after the patient slided from the bed, questionable history of syncope. Denies any chest pain, found to be acute kidney injury with positive troponin. On admission, the patient denied any chest pain, shortness of breath, any palpitations. PAST MEDICAL HISTORY: Significant for chronic kidney disease, hypertension, history of coronary artery disease in the past, history of peripheral arterial disease, TIA, hypertension, hyperlipidemia, osteoarthritis. Previous cardiac workup as follows; the patient had echocardiogram on 01/01/2016, which shows a normal LV size, mild concentric LVH ejection fraction was normal reported. RVSP 65 mmHg with moderate pulmonary hypertension, moderate tricuspid regurgitation and [id number] mitral regurgitation, aortic atherosclerosis versus mild aortic stenosis. HOME MEDICATIONS: The patient was taking at home; clonidine, oxycodone, amlodipine, lorazepam, levothyroxine, atorvastatin, aspirin, and allopurinol. ALLERGIES: PENICILLIN. REVIEW OF SYSTEMS: As per HPI. PHYSICAL EXAMINATION: As follows: VITAL SIGNS: Temperature afebrile, heart rate 74, blood pressure 111/64. HEENT: PERRLA. Extraocular muscles intact. NECK: Supple. No carotid bruit or thyromegaly. CHEST: Clear to auscultation. HEART: S1 and S2 regular. ABDOMEN: Soft, EXTREMITIES: Clubbing and cyanosis negative. LABORATORY DATA: Blood workup as follows; WBC 8.2, hemoglobin 10.4, hematocrit 31.8, platelets count 288. Chemistry showed sodium 139, potassium 4.3, chloride 110, carbon dioxide 23, anion gap 16, BUN 10, creatinine 2.2. Troponin 0.19, 0.68, and 0.86. IMPRESSION: Acute kidney injury on chronic renal insufficiency. Creatinine clearance now is at 20 mL. Elevated CPK, status post fall, troponin positive, could be secondary to underlying coronary artery disease as well as elevated CPK and kidney injury, creatinine clearance 20 mL. Diabetes, hypertension, hyperlipidemia, severe peripheral arterial disease status post stent in the past, coronary artery disease, status post fall, hypertension, and hyperlipidemia. RECOMMENDATIONS: I will continue gentle hydration, repeat echo to assess LV function, monitor the renal function. Monitor trend of troponin; if the trend is down, this probably to treat medically; if the trend up and any evidence of ischemia, have to consider cardiac catheterization, though would be high risk because the patient can go into renal failure. Discussed with the patient. We will discuss with you. Thank you *------* for providing us an opportunity in taking care of Sirena Alicea. We will start the low dose of aspirin and Plavix and monitor closely the trend of CPK and troponin. Neelima Narvaez MD
[2017-01-31] MEDS: Sodium Chloride 0.9% 1,000 ML IV SCH ×2 (00:41→13:37)
[2017-01-31 06:38] LABS: BASO # 0.03 K/mm3 (0.0-2.0); BASO % 0.4 % (0.0-3.0); EOS # 0.2 (0.0-0.7); EOS % 2.2 % (1.5-5.0); GRAN % 77.1 % (50.0-68.0); HEMOGLOBIN 9.1 g/dL (12.0-16.0); LYMPH # 0.9 (1.2-3.4); LYMPH % 11.7 % (22.0-35.0); MEAN CELL VOLUME 88.5 fl (80.0-105.0); MEAN CORPUSCULAR HGB CONC 32.7 g/dl (31.0-37.0); MEAN PLATELET VOLUME 9.5 fl (7.0-11.0); MONO # 0.7 (0.1-0.6); MONO % 8.6 % (1.0-6.0); PLATELET COUNT 266 10^3/uL (120.0-450.0); RBC 3.14 10^6/uL (3.5-6.1); RED CELL DISTRIBUTION WIDTH 15.5 % (11.5-14.5); WHITE BLOOD COUNT 7.8 10^3/ul (4.5-11.0)
[2017-01-31 06:50] LABS: CALCIUM 9.5 mg/dL (8.4-10.5); MAGNESIUM 2.1 mg/dL (1.7-2.2)
--- NOTE | 2017-01-31 07:03 | CP.PCM.PN ---
<Sarahi Cedeño - Last Filed: 01/31/17 15:34> Subjective - Date & Time of Evaluation Date of Evaluation: 01/31/17 Time of Evaluation: 07:02 - Subjective Subjective: PGY-[address] Guillen Pt complained of aches everywhere, but no suprapubic tenderness or CVA tenderness. Objective - Vital Signs/Intake and Output Vital Signs (last 24 hours): Temp Pulse Resp BP Pulse Ox 97.6 F 67 20 111/59 L 93 L 01/31/17 06:00 01/31/17 06:00 01/31/17 06:00 01/31/17 06:00 01/31/17 06:00 Intake and Output: 01/31/17 01/31/17 06:59 18:59 Intake Total 975 Balance 975 - Medications Medications: Current Medications Albuterol/Ipratropium (Duoneb 3 Mg/0.5 Mg (3 Ml) Ud) 3 ml IH Q6H [facility] Last Admin: 01/30/17 19:42 Dose: 3 ml Amlodipine Besylate (Norvasc) 10 mg PO DAILY [facility] Last Admin: 01/30/17 10:58 Dose: 10 mg Aspirin (Aspirin Chewable) 81 mg PO DAILY [facility] Last Admin: 01/30/17 10:58 Dose: 81 mg Atorvastatin Calcium (Lipitor) 80 mg PO DAILY [facility] Last Admin: 01/30/17 10:58 Dose: 80 mg Clopidogrel Bisulfate (Plavix) 75 mg PO DAILY [facility] Last Admin: 01/30/17 10:58 Dose: 75 mg Sodium Chloride (Sodium Chloride 0.9%) 1,000 mls @ 75 mls/hr IV .[id number] [facility] Last Admin: 01/31/17 00:41 Dose: 75 mls/hr Levothyroxine Sodium (Synthroid) 25 mcg PO DAILY [facility] Last Admin: 01/30/17 10:58 Dose: 25 mcg Lorazepam (Ativan) 0.5 mg PO DAILY PRN; Protocol PRN Reason: Anxiety Last Admin: 01/30/17 02:00 Dose: 0.5 mg Losartan Potassium (Cozaar) 100 mg PO DAILY [facility] Last Admin: 01/30/17 10:58 Dose: 100 mg Oxycodone/Acetaminophen (Percocet 5/325 Mg Tab) 1 tab PO BID PRN PRN Reason: Pain, moderate (4-7) Stop: 02/02/17 12:54 Last Admin: 01/30/17 20:14 Dose: 1 tab Pantoprazole Sodium (Protonix Ec Tab) 40 mg PO DAILY [facility] Last Admin: 01/30/17 10:58 Dose: 40 mg - Labs Labs: 01/31/17 04:45 01/30/17 05:20 PT 11.4 Seconds (9.9-11.8) 01/29/17 13:28 INR 1.06 (0.93-1.08) 01/29/17 13:28 APTT 29.1 Seconds (23.7-30.8) 01/29/17 13:28 - Constitutional Appears: No Acute Distress, Chronically Ill - Head Exam Head Exam: ATRAUMATIC, NORMAL INSPECTION, NORMOCEPHALIC - Eye Exam Eye Exam: EOMI, Normal appearance, PERRL. absent: Scleral icterus Pupil Exam: NORMAL ACCOMODATION - ENT Exam ENT Exam: Mucous Membranes Moist - Neck Exam Additional comments: supple - Respiratory Exam Respiratory Exam: Clear to Ausculation Bilateral. absent: Rales, Rhonchi, Wheezes - Cardiovascular Exam Cardiovascular Exam: REGULAR RHYTHM, +S1, +S2 - GI/Abdominal Exam GI & Abdominal Exam: Soft, Normal Bowel Sounds. absent: Guarding, Rigid, Tenderness Additional comments: No suprapubic tendernss - Extremities Exam Extremities Exam: Normal Capillary Refill. absent: Calf Tenderness, Pedal Edema Additional comments: ecchymosis on L hip. all extremities. Dressing on R arm/forearm/hand intact - Back Exam Back Exam: absent: CVA tenderness (L), CVA tenderness (R) - Neurological Exam Neurological Exam: Alert, Awake - Psychiatric Exam Psychiatric exam: Anxious, Normal Affect, Normal Mood - Skin Skin Exam: Dry, Warm Additional comments: ecchymosis on L hip. all extremities. Dressing on R arm/forearm/hand intact Assessment and Plan - Assessment and Plan (Free Text) Plan: 86 F, living alone at home, with a PMH of PAD, CAD, CKD stage 3 Hx of solitary kidney, was admitted after an unwitness fall with prolonged lying on the floor face down. ID was consulted for leukocytosis, which is resolved now. Pt reported dry cough. - Likely asymptomatic bacteriuria - Unlikely sepsis due to gram negative UTI, complicated by solitary kidney and CKD - Likely SIRS due to NATALIA on CKD vs NSTEMI vs Trauma from fall. leukocytosis is resolved in 1 day. - r/o NSTEMI ongoing - mild transaminitis possibly reactive to NATALIA/CKD vs NSTENI, trauma from fall. r /o infection - PCN allergy Plan - Observe off antibiotics - repeat u/a and urine culture - Repeat CXR = no active disease - Hep panel = negative - Continue monitor clinical course Culture - Blood culture - negative growth x 1 - Urine culture (01/29) - E coli s/r/d/w Dr. Guillen <Vasyl Guillen S - Last Filed: 01/31/17 16:06> Objective - Vital Signs/Intake and Output Vital Signs (last 24 hours): Temp Pulse Resp BP Pulse Ox 98.9 F 88 18 150/87 93 L 01/31/17 12:00 01/31/17 12:00 01/31/17 12:00 01/31/17 12:00 01/31/17 06:00 Intake and Output: 01/31/17 01/31/17 06:59 18:59 Intake Total 975 420 Output Total 900 Balance 975 -480 - Medications Medications: Current Medications Albuterol/Ipratropium (Duoneb 3 Mg/0.5 Mg (3 Ml) Ud) 3 ml IH [id number] [facility] Last Admin: 01/31/17 13:33 Dose: Not Given Amlodipine Besylate (Norvasc) 10 mg PO DAILY [facility] Last Admin: 01/31/17 10:08 Dose: 10 mg Aspirin (Aspirin Chewable) 81 mg PO DAILY [facility] Last Admin: 01/31/17 10:08 Dose: 81 mg Atorvastatin Calcium (Lipitor) 80 mg PO DAILY [facility] Last Admin: 01/31/17 10:08 Dose: 80 mg Benzocaine/Menthol (Cepacol Sore Throat) 1 hodan MT Q4H PRN PRN Reason: Sore Throat Last Admin: 01/31/17 15:52 Dose: 1 hodan Clopidogrel Bisulfate (Plavix) 75 mg PO DAILY [facility] Last Admin: 01/31/17 10:08 Dose: 75 mg Sodium Chloride (Sodium Chloride 0.9%) 1,000 mls @ 75 mls/hr IV .[id number] [facility] Last Admin: 01/31/17 13:37 Dose: 75 mls/hr Isosorbide Mononitrate (Imdur) 30 mg PO DAILY [facility] Levothyroxine Sodium (Synthroid) 25 mcg PO DAILY [facility] Last Admin: 01/31/17 10:08 Dose: 25 mcg Lorazepam (Ativan) 0.5 mg PO DAILY PRN; Protocol PRN Reason: Anxiety Last Admin: 01/30/17 02:00 Dose: 0.5 mg Losartan Potassium (Cozaar) 100 mg PO DAILY [facility] Last Admin: 01/31/17 10:11 Dose: 100 mg Nitroglycerin (Nitro-Bid 2% Oint) 1 ea TOP Q6H [facility] Stop: 01/31/17 23:59 Oxycodone/Acetaminophen (Percocet 5/325 Mg Tab) 1 tab PO BID PRN PRN Reason: Pain, moderate (4-7) Stop: 02/02/17 12:54 Last Admin: 01/31/17 12:24 Dose: 1 tab Pantoprazole Sodium (Protonix Ec Tab) 40 mg PO DAILY [facility] Last Admin: 01/31/17 10:08 Dose: 40 mg - Labs Labs: 01/31/17 04:45 01/31/17 04:45 PT 11.4 Seconds (9.9-11.8) 01/29/17 13:28 INR 1.06 (0.93-1.08) 01/29/17 13:28 APTT 29.1 Seconds (23.7-30.8) 01/29/17 13:28 Assessment and Plan - Assessment and Plan (Free Text) Plan: Infectious Diseases Attending Physician Attestation Patient seen and examined, discussed with healthcare or medical. I have reviewed the pertinent clinical information for this patient. I agree with the above findings , assessment and plan. We will continue to monitor this patient off antibiotics who probably has asymptomatic bacteriuria.
[2017-01-31 07:15] LABS: TROPONIN I 0.41 ng/mL
--- NOTE | 2017-01-31 08:08 | CP.PCM.PN ---
Subjective - Date & Time of Evaluation Date of Evaluation: 01/31/17 Time of Evaluation: 07:45 - Subjective Subjective: Patient is seen this morning. She complains of sore throat. She says that it hurts when she swallows. Objective - Vital Signs/Intake and Output Vital Signs (last 24 hours): Temp Pulse Resp BP Pulse Ox 97.6 F 67 20 111/59 L 93 L 01/31/17 06:00 01/31/17 06:00 01/31/17 06:00 01/31/17 06:00 01/31/17 06:00 Intake and Output: 01/31/17 01/31/17 06:59 18:59 Intake Total 975 Balance 975 - Medications Medications: Current Medications Albuterol/Ipratropium (Duoneb 3 Mg/0.5 Mg (3 Ml) Ud) 3 ml IH Q6H [facility] Last Admin: 01/30/17 19:42 Dose: 3 ml Amlodipine Besylate (Norvasc) 10 mg PO DAILY [facility] Last Admin: 01/30/17 10:58 Dose: 10 mg Aspirin (Aspirin Chewable) 81 mg PO DAILY [facility] Last Admin: 01/30/17 10:58 Dose: 81 mg Atorvastatin Calcium (Lipitor) 80 mg PO DAILY [facility] Last Admin: 01/30/17 10:58 Dose: 80 mg Clopidogrel Bisulfate (Plavix) 75 mg PO DAILY [facility] Last Admin: 01/30/17 10:58 Dose: 75 mg Sodium Chloride (Sodium Chloride 0.9%) 1,000 mls @ 75 mls/hr IV .[id number] [facility] Last Admin: 01/31/17 00:41 Dose: 75 mls/hr Levothyroxine Sodium (Synthroid) 25 mcg PO DAILY [facility] Last Admin: 01/30/17 10:58 Dose: 25 mcg Lorazepam (Ativan) 0.5 mg PO DAILY PRN; Protocol PRN Reason: Anxiety Last Admin: 01/30/17 02:00 Dose: 0.5 mg Losartan Potassium (Cozaar) 100 mg PO DAILY [facility] Last Admin: 01/30/17 10:58 Dose: 100 mg Oxycodone/Acetaminophen (Percocet 5/325 Mg Tab) 1 tab PO BID PRN PRN Reason: Pain, moderate (4-7) Stop: 02/02/17 12:54 Last Admin: 01/30/17 20:14 Dose: 1 tab Pantoprazole Sodium (Protonix Ec Tab) 40 mg PO DAILY [facility] Last Admin: 01/30/17 10:58 Dose: 40 mg - Labs Labs: 01/31/17 04:45 01/31/17 04:45 PT 11.4 Seconds (9.9-11.8) 01/29/17 13:28 INR 1.06 (0.93-1.08) 01/29/17 13:28 APTT 29.1 Seconds (23.7-30.8) 01/29/17 13:28 - Constitutional Appears: No Acute Distress - Head Exam Head Exam: ATRAUMATIC, NORMOCEPHALIC - ENT Exam ENT Exam: Normal Oropharynx - Respiratory Exam Respiratory Exam: Decreased Breath Sounds, NORMAL BREATHING PATTERN - Cardiovascular Exam Cardiovascular Exam: +S1, +S2 - GI/Abdominal Exam GI & Abdominal Exam: Soft, Normal Bowel Sounds. absent: Tenderness - Neurological Exam Neurological Exam: Alert, Awake Assessment and Plan - Assessment and Plan (Free Text) Assessment: Acute on chronic kidney disease Abnormal troponin r/o ACS Peripheral vascular disease Plan: Patient is complaining of sore throat this morning. Will order cepacol lozenges. Check repeat chest X-ray. continue IVFs for acute on chronic renal failure. Bun and creatinine are decreasing Cardiology, renal and ID consults appreciated. Patient's troponin elevated. continue ASA and plavix.
--- NOTE | 2017-01-31 08:40 | RAD ---
HISTORY: r/o pna COMPARISON: 01/29/2017 FINDINGS: LUNGS: The minimal infiltrate seen previously is no longer seen. There is no focal consolidation PLEURA: No significant pleural effusion identified, no pneumothorax apparent. CARDIOVASCULAR: Mild cardiomegaly and aortic tortuosity OSSEOUS STRUCTURES: No significant abnormalities. VISUALIZED UPPER ABDOMEN: Normal. OTHER FINDINGS: None. IMPRESSION: No active disease.
[2017-01-31 08:58] LABS: CK-MB 3.6 ng/mL (0.0-3.6)
--- NOTE | 2017-01-31 09:50 | PQF GENQUE ---
This form is a permanent part of the medical record Dr. Infante, In ordered to accurately code and reflect severity, please clarify the following : 1) Your H&P noted that patient has evidence of sepsis based on clinical presentation. Was sepsis POA or ruled out? 2) You also note that "patient has pneumonia of lung" based on initial CXR. Repeat CXR negative. Was pneumonia POA or ruled out? 3) Cardiology evaluated patient and noted that elevated troponins likely from NATALIA. Your note to r/o ACS. Was ACS or NSTEMI ruled out? Clarification of your documentation is requested to better reflect the severity of illness and intensity of treatment of your patient. Indicators present [] Specify: [] [] Specify: [] [] Specify: [] [] Specify: [] Location in the medical record that reflects the above clinical findings: [] Treatment Provided: [] PHYSICIAN'S RESPONSE Based on your medical judgment of the clinical indicators outlined above please clarify the following: [x] Practitioner response - Patient had SIRS, not sepsis on admission. Elevated troponin was most likely secondary to renal failure . Pneumonia was ruled out when repeat CXR was found to be negative. [] If unable to determine, please check the box, sign and date. Present On Admission (POA) Indicator: [] Present at the time of admission [] Not present at the time of admission [] Clinically Undetermined In responding to this query, please exercise your independent professional judgment. The fact that a question is asked does not imply that any particular answer is desired or expected. Thank you for your clarification on this documentation. If you have any questions please call:[ ] * Thank you, [ ]Sylvia Yu [facility] #[id number] certified orthotist/pedorthist [facility]
[2017-01-31] MEDS: Levothyroxine 25 MCG TAB PO SCH (10:08)
[2017-01-31] MEDS: Pantoprazole 40 mg EC Tab PO SCH (10:08)
[2017-01-31] MEDS: Albuterol-Ipratrop 3 mg / 0.5 (3 ml) UD IH SCH ×6 (11:21→23:06)
[2017-01-31 11:46] LABS: % IRON SATURATION 12 % (20-55); IRON 26 ug/dL (45-180); TOTAL IRON BINDING CAPACITY 225 ug/dL (265-497)
[2017-01-31] MEDS: Oxycodone/Acetaminophen 5/325 mg Tab PO PRN ×2 (12:24→19:54)
[2017-01-31 12:44] LABS: HEPATITIS B SURFACE AG NEGATIVE (NEGATIVE)
[2017-01-31 12:50] LABS: HEPATITIS A IGM NEGATIVE (NEGATIVE); HEPATITIS B CORE AB NEGATIVE (NEGATIVE)
[2017-01-31 13:01] LABS: HEPATITIS C ANTIBODY NEGATIVE (NEGATIVE)
[2017-01-31] MEDS ORDERED: Benzocaine/Menthol (Cepacol) Lozenge MT PRN (13:10)
--- NOTE | 2017-01-31 13:57 | PN ---
DATE: 01/31/2017 SUBJECTIVE: The patient is seen lying in bed. She awake, she is alert. She is complaining of cough. She is complaining of shortness of breath. She is complaining of hard to bring up phlegm. PHYSICAL EXAMINATION GENERAL: Cachectic elderly lady lying in bed. VITAL SIGNS: Blood pressure 148/80, heart rate 61, respiratory rate 20, temperature 97.6. HEENT: Normocephalic and atraumatic. Positive pallor. NECK: Supple. No JVD. LUNGS: Bilateral equal air entry. No rales. No rhonchi. CARDIAC: S1 and S2. Regular rate and rhythm. No murmur. No rubs. ABDOMEN: Soft, nondistended, nontender, bowel sounds present. EXTREMITIES: Extensive ecchymosis of the hands, upper arms, back. INTAKE AND OUTPUT: 1395/800. LABORATORY DATA: WBC 7.8, hemoglobin 9.1, hematocrit 27.8, platelets 266. Sodium 139, potassium 5.0, chloride 113, CO2 of 21, BUN 53, creatinine 2.1, glucose 80, calcium 9.5, phosphorus 3.7, magnesium 2.1. LDH 1101, troponin 0.41. CURRENT MEDICATIONS: Aspirin, Ativan, Cozaar 100 mg, DuoNeb, Lipitor, amlodipine 10 mg, Percocet, Plavix, Protonix, normal saline at 75 mL, Synthroid 25 mcg. ASSESSMENT AND PLAN: 1. Acute kidney injury, superimposed on chronic kidney disease stage IV/V, resolving acute kidney injury. 2. Status post fall, ?syncope, acute coronary syndrome?. 3. Resolved hyperkalemia. 4. Severe anemia. 5. Hypercalcemia, resolved with hydration. 6. Hypertension. 7. Advanced age. 8. Dementia. PLAN: 1. Check iron stores. 2. Send stool occults. 3. Monitor H and H closely. 4. Continue IV fluids. 5. Avoid nephrotoxins. 6. Agree with holding Plavix. 7. Okay to continue Cozaar. Kia Villanueva MD
[2017-01-31] MEDS: Nitroglycerin 2% Ointment Foilpak UD TOP SCH ×2 (16:07→20:27)
[2017-01-31 20:46] LABS: URINE BILIRUBIN NEGATIVE (NEGATIVE); URINE BLOOD TRACE-INTACT (NEGATIVE); URINE GLUCOSE (UA) NEGATIVE (NEGATIVE); URINE LEUKOCYTE ESTERASE NEGATIVE Leu/uL (NEGATIVE); URINE NITRATE NEGATIVE (NEGATIVE); URINE PROTEIN >=300 mg/dL (<30 mg/dL); URINE UROBILINOGEN 0.2 E.U./dL (<1 E.U./dL)
[2017-01-31 20:49] LABS: URINE APPEARANCE CLEAR (CLEAR); URINE COLOR YELLOW (YELLOW)
[2017-01-31 21:08] LABS: URINE EPITHELIAL CELLS 0 - 2 /hpf (0-5); URINE RBC 0 - 2 /hpf (0-2)
--- NOTE | 2017-01-31 21:53 | PN ---
DATE: 01/31/2017 REASON FOR CONSULTATION: Positive troponin, acute kidney injury, status post fall, cardiac evaluation. SUBJECTIVE: The patient denies any chest pain. Denies any shortness of breath. Complains of chest pain and coughing; otherwise no chest pain. OBJECTIVE: GENERAL: Lying flat in the bed. Not in apparent distress. VITAL SIGNS: Temperature afebrile, heart rate 88, blood pressure 150/87. HEENT: PERRLA. Extraocular muscles intact. NECK: Supple. No carotid bruit or thyromegaly. CHEST: Clear to auscultation. HEART: S1 and S2 regular. ABDOMEN: Soft, EXTREMITIES: Clubbing and cyanosis negative. LABORATORY DATA: Blood workup as follows; WBC 7.8, hemoglobin 9.1, hematocrit 27.8, platelets count 266. Chemistry showed sodium 139, potassium 5, chloride 113, carbon dioxide 21, anion gap 14, BUN 53, creatinine 2.1. Troponin 0.41, total CPK 299. MB fraction 1.1. IMPRESSION: This is an 86-year-old female with past medical history significant for hypertension, peripheral arterial disease, chronic kidney disease, and hyperlipidemia, who fell down from the bed and brought here, positive troponin, but the patient had elevated total CPK and MB fraction was low. The patient is asymptomatic, so I doubt it is an myocardial infarction. The patient is in phase of acute kidney injury with a creatinine clearance of 17-20 mL an hours, troponin 0.634, but is not significant. Now the troponin's are trending down and also the patient is asymptomatic. The patient had echocardiography done yesterday and that showed normal LV size. left ventricular hypertrophy, ejection fraction 35-40%, mild to moderate aortic regurgitation, mild to moderate valvular aortic stenosis, trace mild mitral regurgitation, mild to moderate tricuspid regurgitation with a systolic pressure of 48. RECOMMENDATIONS: Continue gentle hydration. The patient admitted with acute kidney injury, now it is improving. Troponins are trending down. Total CPK is going down. Maximum CPK was 780, now is at 299, possibly due to positive troponin secondary to rhabdomyolysis as well as kidney injury. MB fraction is low 1.2 to 1.3, so I doubt it is an SC and since the patient is asymptomatic as well as renal insufficiency, we are trying to treat medically rather than invasive procedure. So at this point, no invasive study is planned. Continue baby aspirin, continue losartan, continue atorvastatin, continue clopidogrel and continue levothyroxine. If the blood pressure remains elevated, we will put an half an inch of nitro paste. We will put nitro paste today and tomorrow and we will change to Imdur 30 mg daily. We will follow with you. Thank you Dr. Green for providing us an opportunity in taking care of Sirena Alicea. Neelima Narvaez MD
[2017-02-01 00:56] VITALS: O2SAT 95
[2017-02-01] MEDS: Albuterol-Ipratrop 3 mg / 0.5 (3 ml) UD IH SCH ×3 (01:11→14:22)
[2017-02-01] MEDS: Sodium Chloride 0.9% 1,000 ML IV SCH (02:40)
--- NOTE | 2017-02-01 06:35 | CP.PCM.PN ---
<Sarahi Cedeño - Last Filed: 02/01/17 08:38> Subjective - Date & Time of Evaluation Date of Evaluation: 02/01/17 Time of Evaluation: 06:31 - Subjective Subjective: PGY-[address] Guillen Pt complained of not being able to fall asleep because she got woken up several times to check blood pressure back in back persist, controlled by percocet Objective - Vital Signs/Intake and Output Vital Signs (last 24 hours): Temp Pulse Resp BP Pulse Ox 98.8 F 77 18 121/61 95 02/01/17 06:00 02/01/17 06:00 02/01/17 06:00 02/01/17 06:00 02/01/17 06:00 Intake and Output: 01/31/17 02/01/17 18:59 06:59 Intake Total 420 580 Output Total 900 650 Balance -480 -70 - Medications Medications: Current Medications Albuterol/Ipratropium (Duoneb 3 Mg/0.5 Mg (3 Ml) Ud) 3 ml IH [id number] [facility] Last Admin: 02/01/17 01:11 Dose: Not Given Amlodipine Besylate (Norvasc) 10 mg PO DAILY [facility] Last Admin: 01/31/17 10:08 Dose: 10 mg Aspirin (Aspirin Chewable) 81 mg PO DAILY [facility] Last Admin: 01/31/17 10:08 Dose: 81 mg Atorvastatin Calcium (Lipitor) 80 mg PO DAILY [facility] Last Admin: 01/31/17 10:08 Dose: 80 mg Benzocaine/Menthol (Cepacol Sore Throat) 1 hodan MT Q4H PRN PRN Reason: Sore Throat Last Admin: 01/31/17 15:52 Dose: 1 hodan Clopidogrel Bisulfate (Plavix) 75 mg PO DAILY [facility] Last Admin: 01/31/17 10:08 Dose: 75 mg Sodium Chloride (Sodium Chloride 0.9%) 1,000 mls @ 75 mls/hr IV .[id number] [facility] Last Admin: 02/01/17 02:40 Dose: 75 mls/hr Isosorbide Mononitrate (Imdur) 30 mg PO DAILY [facility] Levothyroxine Sodium (Synthroid) 25 mcg PO DAILY [facility] Last Admin: 01/31/17 10:08 Dose: 25 mcg Lorazepam (Ativan) 0.5 mg PO DAILY PRN; Protocol PRN Reason: Anxiety Last Admin: 01/31/17 22:20 Dose: 0.5 mg Losartan Potassium (Cozaar) 100 mg PO DAILY [facility] Last Admin: 01/31/17 10:11 Dose: 100 mg Oxycodone/Acetaminophen (Percocet 5/325 Mg Tab) 1 tab PO BID PRN PRN Reason: Pain, moderate (4-7) Stop: 02/02/17 12:54 Last Admin: 01/31/17 19:54 Dose: 1 tab Pantoprazole Sodium (Protonix Ec Tab) 40 mg PO DAILY [facility] Last Admin: 01/31/17 10:08 Dose: 40 mg - Labs Labs: 01/31/17 04:45 01/31/17 04:45 PT 11.4 Seconds (9.9-11.8) 01/29/17 13:28 INR 1.06 (0.93-1.08) 01/29/17 13:28 APTT 29.1 Seconds (23.7-30.8) 01/29/17 13:28 - Constitutional Appears: No Acute Distress - Head Exam Head Exam: ATRAUMATIC, NORMAL INSPECTION, NORMOCEPHALIC - Eye Exam Eye Exam: EOMI, Normal appearance, PERRL. absent: Scleral icterus Pupil Exam: NORMAL ACCOMODATION - ENT Exam ENT Exam: Mucous Membranes Moist - Neck Exam Additional comments: supple - Respiratory Exam Respiratory Exam: Clear to Ausculation Bilateral. absent: Rales, Rhonchi, Wheezes - Cardiovascular Exam Cardiovascular Exam: REGULAR RHYTHM, +S1, +S2 - GI/Abdominal Exam GI & Abdominal Exam: Soft, Normal Bowel Sounds. absent: Guarding, Rigid, Tenderness Additional comments: no suprapubic tenderness - Extremities Exam Extremities Exam: Normal Capillary Refill. absent: Calf Tenderness, Pedal Edema - Back Exam Back Exam: absent: CVA tenderness (L), CVA tenderness (R) - Neurological Exam Neurological Exam: Alert, Awake - Psychiatric Exam Psychiatric exam: Normal Affect, Normal Mood - Skin Skin Exam: Warm Additional comments: ecchymosis on L hip. all extremities. Dressing on R arm/forearm/hand intact Assessment and Plan - Assessment and Plan (Free Text) Plan: Ms Faust ([id number]) 86 F, living alone at home, with a PMH of PAD, CAD, CKD stage 3 Hx of solitary kidney, was admitted after an unwitness fall with prolonged lying on the floor face down. ID was consulted for leukocytosis, which is resolved now. Pt reported dry cough. - Likely asymptomatic bacteriuria - Unlikely sepsis due to gram negative UTI, complicated by solitary kidney and CKD - Likely SIRS due to NATALIA on CKD vs NSTEMI vs Trauma from fall. leukocytosis is resolved in 1 day. - Has ruled out ACS by cardio - mild transaminitis possibly reactive to NATALIA/CKD vs NSTENI, trauma from fall. r /o infection - PCN allergy "tongue swell up" Plan - Observe off antibiotics - repeat u/a and urine culture - sent - Repeat CXR = no active disease - Hep panel = negative - Continue monitor clinical course Culture - Blood culture - negative growth x 2 d - Urine culture (01/29) - E coli - Urine culture (01/31) - sent Imaging Echocardiogram (01/31/17) normal LV size, LVH, EF 35-40%, mild to mod aortic regurg, mild-mod valcular aortic stenosis, mild-mod trycuspid regurg with a systolic pressure of 48. Will s/r/d/w Dr. Guillen <Vasyl Guillen S - Last Filed: 02/01/17 16:03> Objective - Vital Signs/Intake and Output Vital Signs (last 24 hours): Temp Pulse Resp BP Pulse Ox 98.5 F 97 H 21 144/84 95 02/01/17 12:00 02/01/17 12:00 02/01/17 12:00 02/01/17 12:00 02/01/17 06:00 Intake and Output: 02/01/17 02/01/17 06:59 18:59 Intake Total 580 Output Total 650 Balance -70 - Labs Labs: 02/01/17 06:00 02/01/17 06:00 PT 11.4 Seconds (9.9-11.8) 01/29/17 13:28 INR 1.06 (0.93-1.08) 01/29/17 13:28 APTT 29.1 Seconds (23.7-30.8) 01/29/17 13:28 Assessment and Plan - Assessment and Plan (Free Text) Plan: Infectious Diseases Attending Physician Attestation Patient seen and examined, discussed with medical anthropologist. I have reviewed the pertinent clinical information for this patient. I agree with the above findings , assessment and plan. In addition, we will continue to monitor this patient off antibiotics.
[2017-02-01 07:01] LABS: CALCIUM 9.3 mg/dL (8.4-10.5)
[2017-02-01 07:02] LABS: BASO # 0.06 K/mm3 (0.0-2.0); BASO % 0.8 % (0.0-3.0); EOS # 0.3 (0.0-0.7); EOS % 3.5 % (1.5-5.0); GRAN # 5.55 (1.4-6.5); GRAN % 75.3 % (50.0-68.0); HEMOGLOBIN 9.5 g/dL (12.0-16.0); LYMPH # 0.8 (1.2-3.4); LYMPH % 11.3 % (22.0-35.0); MEAN CORPUSCULAR HEMOGLOBIN 28.4 pg (25.0-35.0); MEAN CORPUSCULAR HGB CONC 32.3 g/dl (31.0-37.0); MEAN PLATELET VOLUME 9.6 fl (7.0-11.0); MONO # 0.7 (0.1-0.6); MONO % 9.1 % (1.0-6.0); PLATELET COUNT 273 10^3/uL (120.0-450.0); RBC 3.34 10^6/uL (3.5-6.1); RED CELL DISTRIBUTION WIDTH 15.1 % (11.5-14.5); WHITE BLOOD COUNT 7.4 10^3/ul (4.5-11.0)
[2017-02-01 07:11] LABS: TROPONIN I 0.26 ng/mL
[2017-02-01] MEDS: Levothyroxine 25 MCG TAB PO SCH (10:37)
[2017-02-01] MEDS: Pantoprazole 40 mg EC Tab PO SCH (10:41)
[2017-02-01 12:56] VITALS: BP 144/84; PULSE 97; RESP 21; TEMP 98.5
--- NOTE | 2017-02-01 13:24 | PN ---
DATE: 02/01/2017 LOCATION: The patient is in the [facility] in [place], room 268, bed 1. SUBJECTIVE: The patient was admitted having been found on the floor post syncopal episode. The patient does not know what happened. The patient has had multiple medical problems in the past. She has had cerebrovascular disease, coronary artery disease, angioplasty, peripheral vascular disease with angioplasty, and bypass surgery, femoropopliteal. The patient has history of gallbladder disease. 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 The patient has severe degenerative arthritis, has received multiple doses of steroids in the joints. The patient's renal functions are severely impaired. The patient follows up with the review coordinator regularly. PHYSICAL EXAMINATION: VITAL SIGNS: This morning, she is awake. The vital signs shows that the pulse is 77, blood pressure 120/60, patient's respirations are 18, and O2 saturation 95% on room air. HEENT: Head is normocephalic. No evidence of any injuries. NECK: JVP is flat. No lymphadenopathy. LUNGS: Trachea is central. Breath sounds are vesicular and rhonchi occasionally heard. No adventitious sounds. ABDOMEN: Soft. Liver and spleen are not palpable. PROGRAM EVALUATOR EXAMINATION: The patient has no focal neurological deficits. The patient is able to sit up in the chair and in the bed and all medical treatments are providing to the patient and she has been monitored very closely for renal insufficiency. There was evidence of possible myocardial injury, but it is very difficult to do cardiac catheterization in a patient with chronic kidney disease. MEDICATIONS: Patient's list of medications consist of aspirin. The patient is on Ativan for anxiety. The patient is on Losartan 100 mg daily. Albuterol inhalation therapy. The patient is on isosorbide mononitrate for coronary artery disease, Lipitor, amlodipine, oxycodone for pain, Plavix for coronary artery disease. The patient is on pantoprazole for gastritis, Synthroid 25 mcg for clinical hypothyroidism. LABORATORY DATA: The patient's lab work shows a hemoglobin of 9.5. The patient white count is 7,000. The patient's chemistry, the BUN is 39, creatinine is 2.0, these numbers are markedly improved from the numbers at the time of admission. PLAN: The patient is also treated for myositis secondary to the fall and being on the floor. The patient's troponin is abnormal, but that's in keeping with the suspicion of coronary artery disease with myocardial injury. The patient has renal insufficiency that could also be complicating the numbers for the troponin level. However, the patient seem to be clinically improving and we will continue with current management and we will continue followup and also take the advice of all the consultants who have treated the patient. Her overall prognosis of course is poor in view of the fact that she has all these complicated medical conditions and interruption to treatment at times. Quita Green MD MTDD
--- NOTE | 2017-02-01 17:15 | PN ---
SUBJECTIVE: The patient is seen lying in bed. She does not appear to be in any kind of distress. PHYSICAL EXAMINATION VITAL SIGNS: Blood pressure 144/84, heart rate 97, respiratory rate 21, temperature 98.5. HEENT: Normocephalic, atraumatic. Positive pallor. NECK: Supple. No JVD. LUNGS: Bilateral equal air entry. No rales. CARDIAC: S1 and S2, regular rate and rhythm. No murmur. No rubs. ABDOMEN: Soft, nondistended, nontender, bowel sounds present. EXTREMITIES: No lower extremity edema. INTAKE AND OUTPUT: 1000/1515. LABORATORY DATA: WBC 7.4, hemoglobin 9.5, hematocrit 29, platelets 273. Sodium 140, potassium 4.8, chloride 113, CO2 20, BUN 39, creatinine 2.0, glucose 81, calcium 9.3, troponin 0.26. Urine culture E. coli. CURRENT MEDICATIONS: Aspirin, Ativan, losartan 100, DuoNeb, Imdur, Lipitor, amlodipine, Percocet, Plavix, Protonix, normal saline at 75, Synthroid. ASSESSMENT AND PLAN: 1. Acute kidney injury, superimposed on chronic kidney disease stage IV, resolving, creatinine approaching baseline of around 2. 2. Status post fall at home. 3. Acute coronary syndrome ?. 4. History of hypertension. 5. Severe peripheral arterial disease. 6. History of retroperitoneal bleed. 7. Severe anemia with low iron stores. 8. Dementia. PLAN: 1. Dr. Narvaez's note is read, conservative management for acute coronary syndrome, continue beta sierra, aspirin, Plavix. 2. Discontinue IV fluids after current bag. 3. Stool occult still pending. 4. We will start Venofer 200 mg IV piggyback. 5. Continue antibiotics for E. coli UTI. 6. Continue antihypertensive. 7. Physical therapy. Kia Villanueva MD
--- NOTE | 2017-02-01 17:49 | PN ---
DATE: 02/01/2017 REASON FOR CONSULTATION: Followup positive troponin, acute kidney injury, status post fall, cardiac evaluation. SUBJECTIVE: The patient denies any chest pain, shortness of breath, or any palpitation. Complained of cough and rib hurts on coughing, otherwise no chest pain. OBJECTIVE: GENERAL: Lying flat in the bed. Not in apparent distress. VITAL SIGNS: Temperature afebrile, heart rate 77, blood pressure 121/61. HEENT: PERRLA. Extraocular muscles intact. NECK: Supple. No carotid bruit or thyromegaly. CHEST: Clear to auscultation. HEART: S1 and S2 regular. ABDOMEN: Soft. EXTREMITIES: Clubbing and cyanosis negative. LABORATORY DATA: WBC 7.5, hemoglobin 9.5, hematocrit 29.4, and platelets count 273. Chemistry shows sodium 140, potassium 4.0, chloride 113, carbon dioxide 20, anion gap 12, BUN 39, and creatinine 2. Troponin 0.26. IMPRESSION: An 86-year-old female with a past medical history significant for coronary artery disease, peripheral arterial disease, hypertension, diabetes, renal insufficiency, admitted after a fall, rhabdomyolysis, MB fraction was low but the troponin positive most likely secondary to rhabdomyolysis, as well as underlying kidney disease, but cannot rule out coronary artery disease, bronchitis, chest pain, creatinine is 20 mL on admission. The patient had echocardiogram done yesterday that showed hypertrophy, ejection fraction of 35-40%, [id number] aortic regurgitation, [id number] valvular aortic stenosis, eizth-nj-evpi mitral regurgitation, rskn-tj-uptjiiar tricuspid regurgitation with right ventricular systolic pressure of 48. RECOMMENDATIONS: In view of the patient's kidney status and overall risk, we will treat medically, no plan for intervention as the patient ended up dialysis and more complicated. So far, the troponin most likely is secondary to rhabdomyolysis because MB fraction was very low. Continue nitrate. Continue beta-sierra. Nitro changed to Imdur 40 mg. We will continue atorvastatin. Continue baby aspirin and Plavix is added. We will follow with you and discontinue telemetry. Thank you Dr. Green for providing us an opportunity in taking care of Sirena Alicea. Neelima Narvaez MD [facility] # [id number]
--- NOTE | 2017-02-04 07:50 | DS ---
HISTORY OF PRESENT ILLNESS: This is an 86-year-old female who was brought into the emergency room with syncope. The patient was found on the floor, and did not know what happened. She said she just collapsed. She has an abrasion on the right upper arm. She also complained of nausea and vomiting. The patient has past medical history significant for coronary artery disease, peripheral vascular disease, femoropopliteal bypass with stenting on the femoral artery and gangrene of toes in the past. She also has COPD, hypothyroidism, gastritis and chronic gout as well as degenerative arthritis, chronic kidney disease and solitary kidney. The patient's blood work showed a white count of 14,300 with 90% polymorphonucleocyte, creatinine 2.7, BUN 81, potassium 6.4. Troponin was also elevated. LDH 1555. CK-MB fraction 10.2. The patient was admitted to the telemetry floor with acute on chronic renal failure, syncope, possible pneumonia of the lungs. Dr. Villanueva who is her clinical microbiologist and Dr. Chaidez her credit card interviewer were consulted as well as Dr. Guillen, who is infectious disease specialist. Her white count resolved the next day, from 14 it went down to 8. She was afebrile. No signs of infection. A repeat chest x-ray was done, which was negative for pneumonia, so the patient was not placed on any antibiotics. X-rays were done of her elbows and hands, which were negative. CT head was also negative for any acute abnormalities. Echocardiogram was done, showed an ejection fraction of 35% to 40%. She is qzow-dr-hjnaoqavuh impaired, htxi-ql-tynrimne concentric LVH, noxa-jz-matdthzf aortic regurgitation, aortic stenosis, mitral regurgitation, and rpri-xy-kjkksjtn tricuspid regurgitation. The patient was started on IV fluids for the elevated BUN. She was also found to be anemic with her blood count dropping from 12 on admission to 9.5. IV Venofer was ordered by the renal service. For the elevated troponin, the patient was seen by cardiology and repeat troponin decreased from 0.41 to 0.26. We believe this elevated troponin was most likely due to her chronic kidney disease. Conservative management was advised as the patient will not be able to tolerate contrast. She was continued on aspirin, Plavix and beta-sierra. The patient required further rehab for her walking, gait dysfunction. The patient was transferred to the transitional care unit. DISCHARGE DIAGNOSES: 1. Syncope. 2. History of fall. 3. Acute on chronic kidney disease. 4. Iron-deficiency anemia. 5. Peripheral vascular disease. 6. Coronary artery disease. 7. Hypothyroidism. 8. Arthritis. DISCHARGE MEDICATIONS: 1. Aspirin 81 mg once a day. 2. Ativan 0.5 mg daily as needed for anxiety. 3. Bactroban ointment for the wounds. 4. Percocet 5/325 three times a day as needed for pain. 5. Cozaar 100 mg once a day. 6. DuoNeb q. 6 hours. 7. Imdur 30 mg once a day. 8. Lipitor 80 mg daily. 9. Norvasc 10 mg once a day. 10. Plavix 75 mg daily. 11. Protonix 40 mg in a.m. 12. Synthroid 25 mcg daily. FOLLOWUP: The patient will be followed up in the transitional care unit. Jolynn Green MD
== END 2017-02-01 14:42 | DRG 683 ==
LOC: ED 12:12 → ERH 14:47 → 2RNO 19:19
PROVIDERS: ADMIT Internal Medicine; ATTEND Internal Medicine
DX: N17.9 Acute kidney failure, unspecified (principal); R65.10 Systemic inflammatory response syndrome (SIRS) of non-infectious origin without acute organ dysfunction; M62.82 Rhabdomyolysis; N39.0 Urinary tract infection, site not specified; R64 Cachexia; I24.9 Acute ischemic heart disease, unspecified; I12.0 Hypertensive chronic kidney disease with stage 5 chronic kidney disease or end stage renal disease; Z68.1 Body mass index [BMI] 19.9 or less, adult; N18.5 Chronic kidney disease, stage 5; E11.22 Type 2 diabetes mellitus with diabetic chronic kidney disease; I08.3 Combined rheumatic disorders of mitral, aortic and tricuspid valves; F03.90 Unspecified dementia, unspecified severity, without behavioral disturbance, psychotic disturbance, mood disturbance, and anxiety; I25.10 Atherosclerotic heart disease of native coronary artery without angina pectoris; E87.5 Hyperkalemia; M1A.9XX0 Chronic gout, unspecified, without tophus (tophi); K29.70 Gastritis, unspecified, without bleeding; K27.9 Peptic ulcer, site unspecified, unspecified as acute or chronic, without hemorrhage or perforation; E03.9 Hypothyroidism, unspecified; M17.0 Bilateral primary osteoarthritis of knee; F41.9 Anxiety disorder, unspecified; F32.9 Major depressive disorder, single episode, unspecified; S40.811A Abrasion of right upper arm, initial encounter; R55 Syncope and collapse; D50.9 Iron deficiency anemia, unspecified; B96.20 Unspecified Escherichia coli [E. coli] as the cause of diseases classified elsewhere; E78.5 Hyperlipidemia, unspecified; E11.51 Type 2 diabetes mellitus with diabetic peripheral angiopathy without gangrene; E83.52 Hypercalcemia; F17.200 Nicotine dependence, unspecified, uncomplicated; Z96.641 Presence of right artificial hip joint; W06.XXXA Fall from bed, initial encounter; Y92.092 Bedroom in other non-institutional residence as the place of occurrence of the external cause; Z95.5 Presence of coronary angioplasty implant and graft; Z88.0 Allergy status to penicillin; Z79.82 Long term (current) use of aspirin

== ENCOUNTER 2017-02-01 14:42 | Inpatient (IN) | payer OTHER, BC ==
[2017-02-01 15:29] VITALS: BMI 18.4
[2017-02-01] MEDS: Sodium Chloride 0.9% 1,000 ML IV SCH (17:05)
[2017-02-01] MEDS: Oxycodone/Acetaminophen 5/325 mg Tab PO PRN ×2 (17:06→22:24)
[2017-02-01] MEDS ORDERED: Pneumococcal 23-Valent Vaccine IM ONE (18:08)
[2017-02-01] MEDS: Albuterol-Ipratrop 3 mg / 0.5 (3 ml) UD IH SCH (21:36)
[2017-02-02] MEDS: Albuterol-Ipratrop 3 mg / 0.5 (3 ml) UD IH SCH ×4 (02:00→20:12)
[2017-02-02] MEDS: Pantoprazole 40 mg EC Tab PO SCH (05:33)
[2017-02-02] MEDS: Levothyroxine 25 MCG TAB PO SCH (05:33)
[2017-02-02 07:23] LABS: BASO # 0.03 K/mm3 (0.0-2.0); BASO % 0.4 % (0.0-3.0); EOS # 0.2 (0.0-0.7); EOS % 2.1 % (1.5-5.0); GRAN # 6.21 (1.4-6.5); GRAN % 78.1 % (50.0-68.0); HEMOGLOBIN 8.4 g/dL (12.0-16.0); LYMPH # 0.9 (1.2-3.4); LYMPH % 11.6 % (22.0-35.0); MEAN CELL VOLUME 87.5 fl (80.0-105.0); MEAN CORPUSCULAR HEMOGLOBIN 28.3 pg (25.0-35.0); MEAN CORPUSCULAR HGB CONC 32.3 g/dl (31.0-37.0); MEAN PLATELET VOLUME 9.1 fl (7.0-11.0); MONO # 0.6 (0.1-0.6); MONO % 7.8 % (1.0-6.0); PLATELET COUNT 258 10^3/uL (120.0-450.0); RBC 2.97 10^6/uL (3.5-6.1); RED CELL DISTRIBUTION WIDTH 15.3 % (11.5-14.5)
[2017-02-02 07:44] LABS: ALB/GLOB RATIO 0.8 (1.1-1.8); ALBUMIN 2.5 g/dL (3.0-4.8); CALCIUM 8.9 mg/dL (8.4-10.5)
[2017-02-02] MEDS: Sodium Chloride 0.9% 1,000 ML IV SCH (10:23)
[2017-02-02] MEDS: Oxycodone/Acetaminophen 5/325 mg Tab PO PRN ×2 (12:05→17:45)
--- NOTE | 2017-02-02 18:43 | CP.PCM.CON ---
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 She has done well on the medical floors and is now transferred to [facility] for continued medical therapy and physical rehab. Infectious Diseases consult is requested to further evaluate and manage to see if the patient has UTI. 01/29/17 12:49 Sirena Alicea is an 86 year old female, whose past medical history includes severe peripheral vascular disease, hypertension, chronic kidney disease, and hyperlipidemia, who presents to the emergency department complaining of a syncopal episode prior to arrival. Patient was found in kitchen but cannot recall event. Patient is now complaining of bilateral upper extremity discomfort , headache, and nausea. Patient denies any other complaints at this time. PMD: Dr. 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 in a patient with severe peripheral arterial disease without evidence of systemic infection coronary artery disease history of esophagitis peptic ulcer disease peripheral arterial disease dyslipidemia asthma small bowel resection S/P exploratory laparotomy Plan Continue to monitor off antibiotics and monitor the right foot and gangrenous toe; Podiatry doing local wound care Review of Systems - Review of Systems All systems: reviewed and no additional remarkable complaints except (as per HPI ) Past Patient History - Infectious Disease Hx of Infectious Diseases: None - Tetanus Immunizations Tetanus Immunization: Unknown - Past Social History Smoking Status: Former Smoker - CARDIAC Hx Cardiac Disorders: Yes Hx Hypertension: Yes - PULMONARY Hx Chronic Obstructive Pulmonary Disease (COPD): Yes - NEUROLOGICAL Hx Neurological Disorder: No - HEENT Hx HEENT Problems: No - RENAL Hx Chronic Kidney Disease: No - ENDOCRINE/METABOLIC Hx Hypothyroidism: Yes - HEMATOLOGICAL/ONCOLOGICAL Hx Blood Disorders: Yes Hx Anemia: Yes - INTEGUMENTARY Hx Dermatological Problems: No - MUSCULOSKELETAL/RHEUMATOLOGICAL Hx Falls: Yes (recent) - GASTROINTESTINAL Hx Gastrointestinal Disorders: No - GENITOURINARY/GYNECOLOGICAL Hx Reproductive Disorders: No - PSYCHIATRIC Hx Psychophysiologic Disorder: No Hx Substance Use: No - SURGICAL HISTORY Hx Surgeries: Yes Hx Appendectomy: Yes Hx Coronary Stent: Yes Hx Orthopedic Surgery: Yes (R. Hip Replacement) - ANESTHESIA Hx Anesthesia: Yes Hx Anesthesia Reactions: No Hx Malignant Hyperthermia: No Meds Allergies/Adverse Reactions: Allergies Allergy/AdvReac Type Severity Reaction Status Date / Time Penicillins Allergy ANAPHYLAXIS Verified 04/01/16 11:13 - Medications Medications: Current Medications Albuterol/Ipratropium (Duoneb 3 Mg/0.5 Mg (3 Ml) Ud) 3 ml IH [id number] [facility] Amlodipine Besylate (Norvasc) 10 mg PO DAILY [facility] PRN Reason: Protocol Aspirin (Aspirin Chewable) 81 mg PO 0800 [facility] PRN Reason: Protocol Atorvastatin Calcium (Lipitor) 80 mg PO 1800 [facility] PRN Reason: Protocol Last Admin: 02/01/17 17:05 Dose: 80 mg Benzocaine/Menthol (Cepacol Sore Throat) 1 hodan MT Q2H PRN PRN Reason: Sore Throat Clopidogrel Bisulfate (Plavix) 75 mg PO DAILY [facility] PRN Reason: Protocol Sodium Chloride (Sodium Chloride 0.9%) 1,000 mls @ 60 mls/hr IV .[id number] [facility] PRN Reason: Protocol Last Admin: 02/01/17 17:05 Dose: 60 mls/hr Isosorbide Mononitrate (Imdur) 30 mg PO 0600 [facility] PRN Reason: Protocol Levothyroxine Sodium (Synthroid) 25 mcg PO 0630 [facility] PRN Reason: Protocol Lorazepam (Ativan) 0.5 mg PO DAILY PRN; Protocol PRN Reason: Anxiety Losartan Potassium (Cozaar) 100 mg PO DAILY [facility] PRN Reason: Protocol Oxycodone/Acetaminophen (Percocet 5/325 Mg Tab) 1 tab PO BID PRN; Protocol PRN Reason: Pain, moderate (4-7) Stop: 02/04/17 18:01 Last Admin: 02/01/17 17:06 Dose: 1 tab Pantoprazole Sodium (Protonix Ec Tab) 40 mg PO 0630 [facility] PRN Reason: Protocol Physical Exam - Constitutional Appears: Non-toxic, No Acute Distress - Head Exam Head Exam: NORMAL INSPECTION - ENT Exam ENT Exam: Mucous Membranes Moist - Neck Exam Neck exam: Negative for: Lymphadenopathy, Meningismus - Respiratory Exam Respiratory Exam: Decreased Breath Sounds - Cardiovascular Exam Cardiovascular Exam: +S1, +S2 - GI/Abdominal Exam GI & Abdominal Exam: Soft. absent: Tenderness Results - Vital Signs Recent Vital Signs: Last Vital Signs Temp 97.3 F L 02/01/17 17:58 Pulse 77 02/01/17 17:58 Resp 20 02/01/17 17:58 BP 117/61 02/01/17 17:58 Pulse Ox 97 02/01/17 16:00 - Labs Result Diagrams: 02/02/17 06:00 02/02/17 06:00 Assessment & Plan - Assessment and Plan (Free Text) Plan: Assessment Asymptomatic bacteriuria with E. 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
--- NOTE | 2017-02-02 18:53 | HP ---
HISTORY OF PRESENT ILLNESS: The patient is admitted to the transitional care unit. She is in room 316, bed 1. This is an 86-year-old white female. She was admitted for syncope and treated in the acute medical floor. Evaluation by neurologist, by hoister, and latex foam worker were done. The patient had injury to arms with excoriation of the skin. She had very abnormal renal functions at the time of evaluation in the emergency room. She apparently was on the floor for four days she says. CPK enzymes were elevated. Now, the patient is treated medically, condition is improved. She is now admitted to the transitional care unit for deconditioning, rehabilitation and continued medical management. PHYSICAL EXAMINATION: VITAL SIGNS: The pulse is 77, blood pressure is 117/61, respiration 20, patient's oxygen level apparently is 97% on room air, temperature is 97.3 as mentioned. HEENT: Normocephalic. There is no evidence of any injuries. EXTREMITIES: On patient's arms, there is excoriation of the skin from the fall and having been on the floor. NECK: Thyroid is not enlarged. No lymphadenopathy in the neck. Carotid pulses are present. LUNGS: Trachea is central. Breath sounds are vesicular. Breath sounds are diminished bilaterally. ABDOMEN: Soft. Liver and spleen not palpable. No mass, no tenderness HEART: Normal sinus rhythm. No cardiac murmurs or rubs. CENTRAL NERVOUS SYSTEM: She is conscious, rational and oriented. No focal neurological deficits. The patient does have history of peripheral vascular disease. She has had angioplasty of the femoral artery. She has had femoropopliteal bypass. The patient has had a gallbladder surgery and patient has had coronary angioplasty. She has also history of smoking. She has a diagnosis of chronic obstructive lung disease. MEDICATION LIST: The patient is on aspirin 81 mg daily, Ativan 0.5 mg p.r.n. daily as needed. The patient is on Losartan 100 mg daily, albuterol, Duoneb inhalation therapy. The patient is on Imdur 30 mg daily, Lipitor 80 mg daily, amlodipine 10 mg daily, and Percocet for pain. The patient is on Plavix 75 m g daily, Pantoprazole 200 mg daily. She is on IV fluids, sodium chloride at 60 mL per hour and Synthroid 25 mcg daily for clinical hypothyroidism. PLAN: The patient is on a heart healthy diet. Renal, the patient is seen by Dr. Villanueva as a latex foam worker and patient is also seen by Dr. Narvaez, the hoister for abnormal troponin levels. The patient's clinical condition is improving. She is clinically stable. Overall, prognosis guarded. The patient will be followed up regularly. Quita Green MD MTDD
[2017-02-02] MEDS ORDERED: Oxycodone/Acetaminophen 5/325 mg Tab PO STA (20:16)
[2017-02-03] MEDS: Albuterol-Ipratrop 3 mg / 0.5 (3 ml) UD IH SCH ×4 (01:16→19:50)
[2017-02-03] MEDS: Sodium Chloride 0.9% 1,000 ML IV SCH (02:17)
[2017-02-03] MEDS: Pantoprazole 40 mg EC Tab PO SCH (06:36)
[2017-02-03] MEDS: Levothyroxine 25 MCG TAB PO SCH (06:37)
--- NOTE | 2017-02-03 08:54 | CP.PCM.PN ---
Subjective - Date & Time of Evaluation Date of Evaluation: 02/03/17 Time of Evaluation: 08:00 - Subjective Subjective: Patient is seen this morning in room 316. She is complaining of constipation. Objective - Vital Signs/Intake and Output Vital Signs (last 24 hours): Temp Pulse Resp BP Pulse Ox 97.8 F 82 24 134/76 97 02/02/17 10:00 02/02/17 10:00 02/02/17 10:00 02/02/17 10:25 02/01/17 16:00 - Medications Medications: Current Medications Albuterol/Ipratropium (Duoneb 3 Mg/0.5 Mg (3 Ml) Ud) 3 ml IH [id number] [facility] Last Admin: 02/03/17 07:23 Dose: 3 ml Amlodipine Besylate (Norvasc) 10 mg PO DAILY [facility] PRN Reason: Protocol Last Admin: 02/02/17 10:25 Dose: 10 mg Aspirin (Aspirin Chewable) 81 mg PO 0800 [facility] PRN Reason: Protocol Last Admin: 02/02/17 08:14 Dose: 81 mg Atorvastatin Calcium (Lipitor) 80 mg PO 1800 [facility] PRN Reason: Protocol Last Admin: 02/02/17 17:40 Dose: 80 mg Benzocaine/Menthol (Cepacol Sore Throat) 1 hodan MT Q2H PRN PRN Reason: Sore Throat Clopidogrel Bisulfate (Plavix) 75 mg PO DAILY [facility] PRN Reason: Protocol Last Admin: 02/02/17 10:26 Dose: 75 mg Sodium Chloride (Sodium Chloride 0.9%) 1,000 mls @ 60 mls/hr IV .[id number] [facility] PRN Reason: Protocol Last Admin: 02/03/17 02:17 Dose: 60 mls/hr Isosorbide Mononitrate (Imdur) 30 mg PO 0600 [facility] PRN Reason: Protocol Last Admin: 02/03/17 06:30 Dose: 30 mg Levothyroxine Sodium (Synthroid) 25 mcg PO 0630 [facility] PRN Reason: Protocol Last Admin: 02/03/17 06:37 Dose: 25 mcg Lorazepam (Ativan) 0.5 mg PO DAILY PRN; Protocol PRN Reason: Anxiety Losartan Potassium (Cozaar) 100 mg PO DAILY [facility] PRN Reason: Protocol Last Admin: 02/02/17 10:26 Dose: 100 mg Mupirocin (Bactroban Ointment) 0 gm TOP BID [facility] Last Admin: 02/02/17 17:40 Dose: Not Given Oxycodone/Acetaminophen (Percocet 5/325 Mg Tab) 1 tab PO TID PRN; Protocol PRN Reason: Pain, moderate (4-7) Stop: 02/06/17 10:01 Pantoprazole Sodium (Protonix Ec Tab) 40 mg PO 0630 [facility] PRN Reason: Protocol Last Admin: 02/03/17 06:36 Dose: 40 mg - Labs Labs: 02/02/17 06:00 02/02/17 06:00 - Constitutional Appears: No Acute Distress - Head Exam Head Exam: ATRAUMATIC, NORMOCEPHALIC - Respiratory Exam Respiratory Exam: Clear to Ausculation Bilateral, NORMAL BREATHING PATTERN - Cardiovascular Exam Cardiovascular Exam: +S1, +S2 - GI/Abdominal Exam GI & Abdominal Exam: Soft, Normal Bowel Sounds. absent: Tenderness - Neurological Exam Neurological Exam: Alert, Awake Assessment and Plan - Assessment and Plan (Free Text) Assessment: Acute on Chronic renal failure Abnormal troponin Peripheral vascular disease Arthritis Plan: Patient is complaining of constipation. Will order enema. continue Percocet as needed for pain. Will order Miralax daily continue physical therapy will discontinue IV fluids as BUN has decreased.
[2017-02-03] MEDS ORDERED: POLYETHYLENE GLYCOL 3350 17 GM/Dose PACKET PO SCH (10:00)
[2017-02-03] MEDS: Oxycodone/Acetaminophen 5/325 mg Tab PO PRN (17:26)
[2017-02-03] MEDS ORDERED: Peg-Electrolyte Oral Soln 4L (Golytely) PO ONE (19:25)
[2017-02-03] MEDS ORDERED: HYDROmorphone 1 mg/ml ISec SC PRN (19:29)
[2017-02-04] MEDS: Albuterol-Ipratrop 3 mg / 0.5 (3 ml) UD IH SCH ×4 (02:34→20:09)
[2017-02-04] MEDS: Oxycodone/Acetaminophen 5/325 mg Tab PO PRN ×3 (03:57→20:34)
[2017-02-04] MEDS: Pantoprazole 40 mg EC Tab PO SCH (05:50)
[2017-02-04] MEDS: Levothyroxine 25 MCG TAB PO SCH (05:51)
--- NOTE | 2017-02-04 07:20 | CON ---
DATE: 02/03/2017 REASON FOR CONSULTATION: Severe anemia, chronic renal disease stage IV, hypoalbuminemia. HISTORY OF PRESENT ILLNESS: An 86-year-old lady who was initially admitted to the medical side after a fall/syncopal episode at home. She was found to have acute coronary syndrome, elevated troponin, acute kidney injury, extensive ecchymosis and bruising, severe anemia. The patient was treated conservatively. She received IV fluids. Her renal function improved. Her creatinine came down to baseline. She is now in the transitional care unit. She complains of being very weak. She was found to be profoundly anemic. Her hemoglobin is 8.4. She was found to have low iron saturation. She is currently lying in bed. She appears comfortable. She is confused. PAST MEDICAL/SURGICAL HISTORY: Severe hypertension, peripheral vascular disease, atrophic kidney, chronic kidney disease stage IV/V, history of retroperitoneal bleed, anemia, secondary hypoparathyroidism, low vitamin D, dementia. FAMILY HISTORY: Noncontributory. SOCIAL HISTORY: Smoker, no alcohol use, no IV drug abuse. ALLERGIES: PENICILLIN. CURRENT MEDICATIONS: Aspirin, Ativan, losartan 100 mg daily, Imdur 30, Lipitor 80, MiraLax, amlodipine 10, Percocet, Plavix, Protonix, Synthroid. REVIEW OF SYSTEMS: All systems are reviewed, the patient complains of *------*. She denies any shortness of breath. She denies any chest tightness. She denies any abdominal pain. She reports severe constipation. All other systems are reviewed and unremarkable. PHYSICAL EXAMINATION: GENERAL: Elderly lady, lying in bed. VITAL SIGNS: Blood pressure 129/77, heart rate 77, respiratory rate 18, temperature 97.8. HEENT: Normocephalic and atraumatic. Positive pallor. NECK: Supple. No JVD. LUNGS: Bilateral equal air entry, bilateral rhonchi. No rales. CARDIAC: S1 and S2, regular rate and rhythm. No murmur. No rub. ABDOMEN: Soft, nondistended and nontender. Bowel sounds present. EXTREMITIES: No lower extremity edema. INTAKE AND OUTPUT: Not charted. LABORATORY DATA: WBC 8, hemoglobin 8.4, hematocrit 26 and platelets 258. Sodium 138, potassium 4.9, chloride 114, CO2 of 18, BUN 37, creatinine 2.4, glucose 100, calcium 8.9, phosphorus 6.7, magnesium 2.1. ASSESSMENT: 1. Severe anemia, no iron stores. 2. Advanced chronic kidney disease stage IV. 3. Hypertension. 4. Peripheral arterial disease. 5. Dementia. 6. Secondary hypoparathyroidism. PLAN: 1. Venofer 200 mg IV piggyback daily x3. 2. Continue current antihypertensives including Cozaar 100 mg daily. 3. Physical therapy. 4. Continue antiplatelet agents. Thank you for the courtesy of this consultation. We will follow this patient closely with you. Kia Villanueva MD
[2017-02-04 07:33] LABS: CALCIUM 9.2 mg/dL (8.4-10.5)
--- NOTE | 2017-02-04 08:35 | CP.PCM.PN ---
Subjective - Date & Time of Evaluation Date of Evaluation: 02/04/17 Time of Evaluation: 07:45 - Subjective Subjective: Patient is seen this morning. She is still complaining of constipation. She had a small bowel movement yesterday after receiving Miralax and then Go-lyetly in the evening. She also complains of pain on the left side where she fell. Objective - Vital Signs/Intake and Output Vital Signs (last 24 hours): Temp Pulse Resp BP Pulse Ox 98.5 F 61 24 150/74 97 02/03/17 10:00 02/03/17 10:00 02/02/17 10:00 02/03/17 10:00 02/01/17 16:00 - Medications Medications: Current Medications Albuterol/Ipratropium (Duoneb 3 Mg/0.5 Mg (3 Ml) Ud) 3 ml IH [id number] [facility] Last Admin: 02/04/17 07:14 Dose: Not Given Amlodipine Besylate (Norvasc) 10 mg PO DAILY [facility] PRN Reason: Protocol Last Admin: 02/03/17 09:51 Dose: 10 mg Aspirin (Aspirin Chewable) 81 mg PO 0800 [facility] PRN Reason: Protocol Last Admin: 02/04/17 07:55 Dose: 81 mg Atorvastatin Calcium (Lipitor) 80 mg PO 1800 [facility] PRN Reason: Protocol Last Admin: 02/03/17 17:27 Dose: 80 mg Benzocaine/Menthol (Cepacol Sore Throat) 1 hodan MT Q2H PRN PRN Reason: Sore Throat Clopidogrel Bisulfate (Plavix) 75 mg PO DAILY [facility] PRN Reason: Protocol Last Admin: 02/03/17 09:51 Dose: 75 mg Iron Sucrose 200 mg/ Sodium (Chloride) 110 mls @ 110 mls/hr IVPB DAILY [facility] Stop: 02/05/17 10:59 Last Admin: 02/03/17 15:32 Dose: 110 mls/hr Isosorbide Mononitrate (Imdur) 30 mg PO 0600 [facility] PRN Reason: Protocol Last Admin: 02/04/17 05:50 Dose: 30 mg Levothyroxine Sodium (Synthroid) 25 mcg PO 0630 [facility] PRN Reason: Protocol Last Admin: 02/04/17 05:51 Dose: 25 mcg Lorazepam (Ativan) 0.5 mg PO DAILY PRN; Protocol PRN Reason: Anxiety Losartan Potassium (Cozaar) 100 mg PO DAILY [facility] PRN Reason: Protocol Last Admin: 02/03/17 09:50 Dose: 100 mg Mupirocin (Bactroban Ointment) 0 gm TOP BID [facility] Last Admin: 02/03/17 17:26 Dose: 1 applic Oxycodone/Acetaminophen (Percocet 5/325 Mg Tab) 1 tab PO TID PRN; Protocol PRN Reason: Pain, moderate (4-7) Stop: 02/06/17 10:01 Last Admin: 02/04/17 03:57 Dose: 1 tab Pantoprazole Sodium (Protonix Ec Tab) 40 mg PO 0630 [facility] PRN Reason: Protocol Last Admin: 02/04/17 05:50 Dose: 40 mg Polyethylene Glycol (Miralax) 17 gm PO DAILY [facility] Last Admin: 02/03/17 09:51 Dose: 17 gm - Labs Labs: 02/02/17 06:00 02/04/17 06:00 - Constitutional Appears: No Acute Distress - Head Exam Head Exam: ATRAUMATIC, NORMOCEPHALIC - Respiratory Exam Respiratory Exam: Clear to Ausculation Bilateral, NORMAL BREATHING PATTERN - Cardiovascular Exam Cardiovascular Exam: +S1, +S2 - GI/Abdominal Exam GI & Abdominal Exam: Soft, Normal Bowel Sounds. absent: Tenderness - Neurological Exam Neurological Exam: Abnormal Gait, Alert, Awake, Oriented x3 Assessment and Plan - Assessment and Plan (Free Text) Assessment: s/p fall Acute on Chronic kidney disease PVD Iron deficiency anemia Arthritis Constipation COPD Plan: Patient had one small bowel movement yesterday. Will continue Miralax. Hemoglobin 8.4 yesterday. IV Venofer was ordered. However, patient complained of burning sensation when Venofer was administered. Stool for occult blood is pending. BUN and creatinine decreased with IV fluids. Will monitor off IVFs. continue respiratory treatments continue physical therapy
[2017-02-04] MEDS: POLYETHYLENE GLYCOL 3350 17 GM/Dose PACKET PO SCH ×2 (11:03→17:48)
--- NOTE | 2017-02-04 14:37 | CP.PCM.PN ---
Subjective - Date & Time of Evaluation Date of Evaluation: 02/04/17 Time of Evaluation: 11:45 - Subjective Subjective: Comfortable, afebrile, not in distress. Objective - Vital Signs/Intake and Output Vital Signs (last 24 hours): Temp Pulse Resp BP Pulse Ox 98 F 82 18 142/79 91 L 02/04/17 10:12 02/04/17 10:12 02/04/17 10:12 02/04/17 11:03 02/04/17 10:12 - Medications Medications: Current Medications Albuterol/Ipratropium (Duoneb 3 Mg/0.5 Mg (3 Ml) Ud) 3 ml IH [id number] [facility] Last Admin: 02/04/17 14:02 Dose: 3 ml Amlodipine Besylate (Norvasc) 10 mg PO DAILY [facility] PRN Reason: Protocol Last Admin: 02/04/17 11:03 Dose: 10 mg Aspirin (Aspirin Chewable) 81 mg PO 0800 [facility] PRN Reason: Protocol Last Admin: 02/04/17 07:55 Dose: 81 mg Atorvastatin Calcium (Lipitor) 80 mg PO 1800 [facility] PRN Reason: Protocol Last Admin: 02/03/17 17:27 Dose: 80 mg Benzocaine/Menthol (Cepacol Sore Throat) 1 hodan MT Q2H PRN PRN Reason: Sore Throat Clopidogrel Bisulfate (Plavix) 75 mg PO DAILY [facility] PRN Reason: Protocol Last Admin: 02/04/17 11:04 Dose: 75 mg Iron Sucrose 200 mg/ Sodium (Chloride) 110 mls @ 110 mls/hr IVPB DAILY [facility] Stop: 02/05/17 10:59 Last Admin: 02/04/17 11:04 Dose: 110 mls/hr Isosorbide Mononitrate (Imdur) 30 mg PO 0600 [facility] PRN Reason: Protocol Last Admin: 02/04/17 05:50 Dose: 30 mg Levothyroxine Sodium (Synthroid) 25 mcg PO 0630 [facility] PRN Reason: Protocol Last Admin: 02/04/17 05:51 Dose: 25 mcg Lorazepam (Ativan) 0.5 mg PO DAILY PRN; Protocol PRN Reason: Anxiety Losartan Potassium (Cozaar) 100 mg PO DAILY [facility] PRN Reason: Protocol Last Admin: 02/04/17 11:03 Dose: 100 mg Mupirocin (Bactroban Ointment) 0 gm TOP BID [facility] Last Admin: 02/04/17 11:02 Dose: 1 applic Oxycodone/Acetaminophen (Percocet 5/325 Mg Tab) 1 tab PO TID PRN; Protocol PRN Reason: Pain, moderate (4-7) Stop: 02/06/17 10:01 Last Admin: 02/04/17 03:57 Dose: 1 tab Pantoprazole Sodium (Protonix Ec Tab) 40 mg PO 0630 [facility] PRN Reason: Protocol Last Admin: 02/04/17 05:50 Dose: 40 mg Polyethylene Glycol (Miralax) 17 gm PO BID [facility] Last Admin: 02/04/17 11:03 Dose: 17 gm - Labs Labs: 02/02/17 06:00 02/04/17 06:00 - Constitutional Appears: Non-toxic, No Acute Distress - Head Exam Head Exam: NORMAL INSPECTION - ENT Exam ENT Exam: Mucous Membranes Moist - Neck Exam Neck Exam: absent: Meningismus - Respiratory Exam Respiratory Exam: Decreased Breath Sounds - Cardiovascular Exam Cardiovascular Exam: +S1, +S2 - GI/Abdominal Exam GI & Abdominal Exam: Soft. absent: Tenderness Assessment and Plan - Assessment and Plan (Free Text) Plan: Assessment Asymptomatic bacteriuria with E. 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
--- NOTE | 2017-02-04 16:56 | CON ---
DATE: 02/04/2017 LOCATION: Room #316, bed 1. REASON FOR CONSULTATION: Coronary artery disease, positive troponin, renal dysfunction. HISTORY OF PRESENT ILLNESS: An 86-year-old female known to have severe PAD, hypertension, chronic kidney disease, hyperlipidemia, coronary artery disease, was admitted to the medical floor with questionable history of syncope. The patient did not have any chest pain, shortness of breath or palpitation associated with that. The patient also found to have acute kidney injury and on admission the patient has slightly troponin. The patient was treated on medical floor. Now she then admitted to transitional care unit for deconditioning and physical therapy. On the medical floor, it was decided to treat the patient medically. Because of all other issues, the patient had kidney problem and if we do cath she will go kidney failure visiting dialysis. The patient was asymptomatic and troponin can be also elevated due to rhabdomyolysis which the patient had CPK elevation and also due to renal dysfunction. PAST MEDICAL HISTORY: Significant for chronic kidney disease, hypertension, history of coronary artery disease and past history of peripheral vascular disease, TIA, hypertension, hyperlipidemia, osteoarthritis. The patient had echo on 01/31/2017 which showed decreased LV function with ejection fraction 35% to 40% duag-uc-stdchtbh artery regurg, eure-rh-xdplpvut valvular aortic stenosis, wzsxo-vv-fpbl mitral regurg, cird-on-bjwnxrce tricuspid regurg, right ventricular systolic pressure of 48 mmHg suggestive of mild pulmonary hypertension. HOME MEDICATION: Included clonidine, oxycodone, amlodipine, lorazepam, levothyroxine, atorvastatin, aspirin and allopurinol. ALLERGIES: THE PATIENT IS KNOWN TO HAVE ALLERGY TO PENICILLIN. REVIEW OF SYSTEMS: All the symptoms reviewed. Positive as mentioned in the HPI, others are negative. PHYSICAL EXAMINATION VITAL SIGNS: Blood pressure 142/79, respirations 18, pulse 82, temperature 98. HEENT: Head is normocephalic. Eyes: pupils normal. Conjunctivae slightly pale. NECK: JVP low. Carotids equal. Thorax: AP diameter normal. LUNGS: Clear. CARDIOPULMONARY: S1 and S2 soft, systolic murmur. No rub. ABDOMEN: Soft, nontender, no organomegaly. EXTREMITIES: No clubbing, no cyanosis. LABORATORY DATA: Lab WBC 8.0, hemoglobin 8.4, hematocrit 26.0, and platelets 258. Sodium 137, potassium 4.8, BUN 27, and creatinine 1.8. On admission day, the patient's BUN was 81 with creatinine 2.7. The patient's troponin medical floor was 0.19 then 0.63 then 0.86 then 0.41 then 0.26. Last troponin was done in 02/01, it was 0.26. DIAGNOSES: Coronary artery disease, peripheral vascular disease, hypertension, diabetes, renal insufficiency, anemia. The patient was admitted on the medical floor with rhabdomyolysis, LV dysfunction with ejection fraction of 35% to 40%, mild aortic stenosis. The patient was admitted with possible falls, rhabdomyolysis, so troponin can be elevated due to rhabdomyolysis as well as kidney dysfunction and the patient is asymptomatic and the patient has mild pulmonary hypertension, so due to other comorbidities like renal dysfunction the patient was not candidate catheterization especially when she is asymptomatic because this has put her to renal failure and she would need dialysis, so I have decided to treat the patient medically. The patient also found to have deconditioning, so she is admitted to transitional care unit for physical therapy. PLAN: The patient will continue the symptomatic on cardiac point of view, and we will continue to treat her medically and the patient can go for physical therapy for deconditioning. The patient is presently getting aspirin 81 mg p.o. daily, Cozaar 100 mg p.o. daily, DuoNeb hand nebulizer therapy, isosorbide mononitrate 30 daily. The patient has been receiving Venofer IV for anemia, Lipitor 80 mg daily, amlodipine 10 mg daily, Percocet p.r.n. for pain, Plavix 75 mg daily, Protonix 40 mg daily, Synthroid 25 mcg p.o. daily. We will continue present therapy and we will follow closely. Neelima Chaidez MD
--- NOTE | 2017-02-05 00:02 | PN ---
DATE: 02/04/2017 SUBJECTIVE: The patient is seen sitting in chair. She is awake, she is alert, she is comfortable. She reports feeling much better. She reports she had pain on her left side earlier. PHYSICAL EXAMINATION GENERAL: Elderly lady, sitting in chair. VITAL SIGNS: Blood pressure 142/79, heart rate 80, respiratory rate 18, temperature 98. HEENT: Normocephalic, atraumatic. Positive pallor. NECK: Supple. No JVD. LUNGS: Bilateral equal air entry, no rales. CARDIAC: S1 and S2. Regular rate and rhythm. ABDOMEN: Soft, nondistended, nontender. Bowel sounds present. EXTREMITIES: No lower extremity edema. INTAKE AND OUTPUT: Not charted. LABORATORY DATA: Sodium 137, potassium 4.8, chloride 112, CO2 of 16, BUN 27, creatinine 1.8, glucose 83, calcium 9.2. MEDICATIONS: Losartan 100 mg daily, DuoNeb, Imdur 30 mg, iron 200 mg daily, Lipitor, MiraLax, amlodipine 10 mg, Plavix, Protonix, Synthroid. ASSESSMENT AND PLAN: 1. Resolved acute kidney injury. 2. Stable chronic kidney disease stage IV. 3. Anemia with low iron stores. 4. Status post fall/syncope/acute coronary syndrome?. 5. Hypertension. 6. Dementia. PLAN: 1. Continue IV Venofer, *------*. 2. Continue current antihypertensives. 3. Avoid nephrotoxins. 4. Physical therapy. Kia Villanueva MD
[2017-02-05] MEDS: Albuterol-Ipratrop 3 mg / 0.5 (3 ml) UD IH SCH ×4 (01:03→20:14)
[2017-02-05] MEDS: Pantoprazole 40 mg EC Tab PO SCH (05:59)
[2017-02-05] MEDS: Levothyroxine 25 MCG TAB PO SCH (05:59)
[2017-02-05] MEDS: POLYETHYLENE GLYCOL 3350 17 GM/Dose PACKET PO SCH ×2 (10:01→17:35)
[2017-02-05] MEDS: Benzocaine/Menthol (Cepacol) Lozenge MT PRN (10:06)
--- NOTE | 2017-02-05 13:36 | PN ---
LOCATION: The patient is seen in the Transitional Care Unit, room 316, bed 1. SUBJECTIVE: The patient was admitted here for physical therapy, rehabilitation, continued treatment of medical condition. She initially passed out in the house and she was brought to the emergency room, treated medically and evaluated, and now the patient is in for rehabilitation, deconditioning, and continued medical treatment. PHYSICAL EXAMINATION VITAL SIGNS: This morning, the patient's pulse rate is 80, blood pressure 124/65, respirations are 20, O2 saturation 91% on room air, and temperature 99.1. MEDICATIONS: Home medications consist of aspirin 81 mg daily and Ativan 0.5 mg daily for p.r.n. use. The patient gets losartan 100 mg daily, albuterol, and ipratropium which is DuoNeb q.6 hours. The patient is on Imdur 30 mg daily and iron sucrose infusion was given for anemia. The patient also gets Lipitor 80 mg daily and amlodipine 10 mg daily. The patient gets pain medications Percocet 3 times a day p.r.n. for pain, Plavix 75 mg daily, pantoprazole 40 mg daily, and Synthroid 25 mcg daily. LABORATORY DATA: The patient's lab work shows hemoglobin is 8.4. We have to repeat the patient's chemistry. The blood sugars is 83. The patient's BUN is 27 and creatinine is 1.8. PLAN: The patient's condition is clinically stable at this time. She had fecal impaction that was cleared by nursing staff. The patient feels more comfortable. She also has multiple abrasions on both arms. These were cleaned and dressed. The patient will continue current management. We will follow up. Quita Green MD MTDJovanny
--- NOTE | 2017-02-05 15:41 | CP.PCM.PN ---
Subjective - Date & Time of Evaluation Date of Evaluation: 02/05/17 Time of Evaluation: 11:35 - Subjective Subjective: Comfortable in bed, not in distress, afebrile. Objective - Vital Signs/Intake and Output Vital Signs (last 24 hours): Temp Pulse Resp BP Pulse Ox 97.5 F L 81 18 137/67 91 L 02/05/17 10:24 02/05/17 10:24 02/05/17 10:24 02/05/17 10:24 02/04/17 16:05 Intake and Output: 02/05/17 02/05/17 06:59 18:59 Intake Total 400 Output Total 450 Balance -50 - Medications Medications: Current Medications Albuterol/Ipratropium (Duoneb 3 Mg/0.5 Mg (3 Ml) Ud) 3 ml IH [id number] [facility] Last Admin: 02/05/17 13:10 Dose: Not Given Amlodipine Besylate (Norvasc) 10 mg PO DAILY [facility] PRN Reason: Protocol Last Admin: 02/05/17 10:01 Dose: 10 mg Aspirin (Aspirin Chewable) 81 mg PO 0800 [facility] PRN Reason: Protocol Last Admin: 02/05/17 08:32 Dose: 81 mg Atorvastatin Calcium (Lipitor) 80 mg PO 1800 [facility] PRN Reason: Protocol Last Admin: 02/04/17 17:48 Dose: 80 mg Benzocaine/Menthol (Cepacol Sore Throat) 1 hodan MT Q2H PRN PRN Reason: Sore Throat Last Admin: 02/05/17 10:06 Dose: 1 hodan Clopidogrel Bisulfate (Plavix) 75 mg PO DAILY [facility] PRN Reason: Protocol Last Admin: 02/05/17 10:02 Dose: 75 mg Isosorbide Mononitrate (Imdur) 30 mg PO 0600 [facility] PRN Reason: Protocol Last Admin: 02/05/17 06:00 Dose: 30 mg Levothyroxine Sodium (Synthroid) 25 mcg PO 0630 [facility] PRN Reason: Protocol Last Admin: 02/05/17 05:59 Dose: 25 mcg Lorazepam (Ativan) 0.5 mg PO DAILY PRN; Protocol PRN Reason: Anxiety Losartan Potassium (Cozaar) 100 mg PO DAILY [facility] PRN Reason: Protocol Last Admin: 02/05/17 10:01 Dose: 100 mg Mupirocin (Bactroban Ointment) 0 gm TOP BID [facility] Last Admin: 02/05/17 10:01 Dose: 1 applic Oxycodone/Acetaminophen (Percocet 5/325 Mg Tab) 1 tab PO TID PRN; Protocol PRN Reason: Pain, moderate (4-7) Stop: 02/06/17 10:01 Last Admin: 02/04/17 20:34 Dose: 1 tab Pantoprazole Sodium (Protonix Ec Tab) 40 mg PO 0630 [facility] PRN Reason: Protocol Last Admin: 02/05/17 05:59 Dose: 40 mg Polyethylene Glycol (Miralax) 17 gm PO BID [facility] Last Admin: 02/05/17 10:01 Dose: 17 gm - Labs Labs: 02/02/17 06:00 02/04/17 06:00 - Constitutional Appears: Non-toxic, No Acute Distress - Head Exam Head Exam: NORMAL INSPECTION - ENT Exam ENT Exam: Mucous Membranes Moist - Neck Exam Neck Exam: absent: Lymphadenopathy, Meningismus - Respiratory Exam Respiratory Exam: Decreased Breath Sounds - Cardiovascular Exam Cardiovascular Exam: +S1, +S2 - GI/Abdominal Exam GI & Abdominal Exam: Soft. absent: Tenderness Assessment and Plan - Assessment and Plan (Free Text) Plan: Assessment Asymptomatic bacteriuria with E. 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
[2017-02-05] MEDS: Oxycodone/Acetaminophen 5/325 mg Tab PO PRN (15:45)
--- NOTE | 2017-02-05 17:00 | PN ---
DATE: 02/05/2017 REASON FOR CONSULTATION: Coronary artery disease, positive troponin, renal insufficiency. SUBJECTIVE: The patient denies any chest pain, shortness of breath, or any palpitations. PHYSICAL EXAMINATION: GENERAL: Lying on the bed. Not in apparent distress. VITAL SIGNS: Temperature afebrile, heart rate 81, blood pressure 137/60. HEENT: PERRLA. Extraocular muscles intact. NECK: Supple. No carotid bruit or thyromegaly. CHEST: Clear to auscultation. HEART: S1 and S2 regular. ABDOMEN: Soft. EXTREMITIES: Clubbing and cyanosis negative. LABORATORY DATA: Blood workup as follows: WBC 8, hemoglobin 8.5, hematocrit 26, platelet count 258. Chemistry shows sodium 130, potassium 4.0, chloride 101, carbon dioxide 16, anion gap of 14, BUN 27, and creatinine 1.8. IMPRESSION: An 86-year-old female with past medical history significant for chronic kidney disease, hypertension, PAD, hyperlipidemia who initially admitted to medical floor with near syncope, borderline positive troponin probably secondary to renal insufficiency, ejection fraction 35% to 40%. The patient had a fall and rhabdomyolysis. The patient with severe PAD because of it is hard to treat the patient medically. The patient now in the transitional care for the continuity of care. Cardiology consult was called. RECOMMENDATIONS: Continue aggressive medical treatment. No plan for cardiac catheterization. Continue aspirin. Continue losartan. Continue isosorbide dinitrate 30 mg daily. Continue atorvastatin. Continue levothyroxine. The patient okay to go for rehab. Thank you Dr. Green for providing us an opportunity in taking care of the patient. Neelima Narvaez MD
--- NOTE | 2017-02-05 21:19 | PN ---
SUBJECTIVE: The patient is currently seen in the TCU. She is currently receiving IV Venofer. She is complaining of pain allover and is requesting pain medication. Form our renal standpoint, she appears to be stable. MEDICATIONS: Medication list reviewed. The patient is currently on aspirin, Ativan, mupirocin, Cepacol, Cozaar, DuoNeb, Imdur, Lipitor,MiraLax, Norvasc, Percocet p.r.n., Plavix, Protonix and Synthroid. OBJECTIVE: VITAL SIGNS: Blood pressure 137/67, temperature 97.5, respiratory rate of 18 with pulse of 81. HEENT: Shows head to be normocephalic, atraumatic. Conjunctivae are pale. Sclerae are nonicteric. NECK: Supple, without neck vein distention. CHEST: Clear to auscultation and percussion. No rales. No rhonchi. No wheezing. CARDIOVASCULAR: Shows irregular rate and rhythm without audible murmurs, rubs, or gallops. ABDOMEN: Soft. Bowel sounds are normal. No rebound, no guarding, no masses. EXTREMITIES: Show no lower extremity edema, cyanosis or clubbing. Pulses are intact in her distal lower extremities. LABORATORY DATA AND IMAGING: CBC: White blood cell count from 3 days ago 8.0 with a hemoglobin of 8.4, platelet count of 258,000. Chemistry show sodium 137, potassium 4.8, chloride 112 with a CO2 which is now down to 16. BUN 127 with a creatinine of 1.8. Calcium of 9.2. Albumin was 2.5. ASSESSMENT: 1. Status post acute renal failure. The patient is currently has a stable BUN and creatinine. Her creatinine had fallen from a high of 2.7, now down to 1.8. She is at or close to baseline levels. The patient has chronic kidney disease stage IV. 2. History of renal artery stenosis, currently stable. 3. History of secondary hyperparathyroidism. We will recheck phosphorus levels. 4. History of anemia and part to secondary to chronic kidney disease and part to secondary to iron deficiency. Her iron saturation was 12%. The patient will complete a course of IV Venofer up to total of 1 g. 5. History of mild dementia, currently stable. 6. Hypertension, currently stable on present medication. 7. History of peripheral vascular disease, status post lower extremity vascular bypass surgery. 8. History of chronic obstructive pulmonary disease currently stable. 9. History of arteriosclerotic heart disease, status post PTCA stent currently stable. PLAN: 1. We will monitor labs on a routine bases on the TCU. We will check her phosphorus levels. We will repeat a CBC to see if the hemoglobin has stabilized at around 9. 2. In light of her chronic kidney disease, we will continue the patient on a renal diet. 3. PRN pain medication as per Dr. Infante. Moe He MD
[2017-02-06] MEDS: Albuterol-Ipratrop 3 mg / 0.5 (3 ml) UD IH SCH ×4 (02:11→21:39)
[2017-02-06] MEDS: Pantoprazole 40 mg EC Tab PO SCH (05:30)
[2017-02-06] MEDS: Levothyroxine 25 MCG TAB PO SCH (05:30)
[2017-02-06 07:39] LABS: HEMOGLOBIN 9.5 g/dL (12.0-16.0); MEAN CELL VOLUME 87.4 fl (80.0-105.0); MEAN CORPUSCULAR HEMOGLOBIN 28.5 pg (25.0-35.0); MEAN CORPUSCULAR HGB CONC 32.6 g/dl (31.0-37.0); MEAN PLATELET VOLUME 9.3 fl (7.0-11.0); RBC 3.33 10^6/uL (3.5-6.1); RED CELL DISTRIBUTION WIDTH 15.6 % (11.5-14.5); WHITE BLOOD COUNT 11.6 10^3/ul (4.5-11.0)
[2017-02-06 07:58] LABS: ALB/GLOB RATIO 0.8 (1.1-1.8); ALBUMIN 2.7 g/dL (3.0-4.8); CALCIUM 9.5 mg/dL (8.4-10.5); MAGNESIUM 1.9 mg/dL (1.7-2.2)
--- NOTE | 2017-02-06 08:13 | CP.PCM.PN ---
Subjective - Date & Time of Evaluation Date of Evaluation: 02/06/17 Time of Evaluation: 07:45 - Subjective Subjective: Patient complains of pain in her knees and back. She denies chest pain, shortness of breath. Objective - Vital Signs/Intake and Output Vital Signs (last 24 hours): Temp Pulse Resp BP Pulse Ox 97.0 F L 76 18 129/69 97 02/05/17 16:17 02/05/17 16:17 02/05/17 16:17 02/05/17 16:17 02/05/17 16:17 - Medications Medications: Current Medications Albuterol/Ipratropium (Duoneb 3 Mg/0.5 Mg (3 Ml) Ud) 3 ml IH [id number] [facility] Last Admin: 02/06/17 07:23 Dose: Not Given Amlodipine Besylate (Norvasc) 10 mg PO DAILY [facility] PRN Reason: Protocol Last Admin: 02/05/17 10:01 Dose: 10 mg Aspirin (Aspirin Chewable) 81 mg PO 0800 [facility] PRN Reason: Protocol Last Admin: 02/05/17 08:32 Dose: 81 mg Atorvastatin Calcium (Lipitor) 80 mg PO 1800 [facility] PRN Reason: Protocol Last Admin: 02/05/17 17:35 Dose: 80 mg Benzocaine/Menthol (Cepacol Sore Throat) 1 hodan MT Q2H PRN PRN Reason: Sore Throat Last Admin: 02/05/17 10:06 Dose: 1 hodan Clopidogrel Bisulfate (Plavix) 75 mg PO DAILY [facility] PRN Reason: Protocol Last Admin: 02/05/17 10:02 Dose: 75 mg Isosorbide Mononitrate (Imdur) 30 mg PO 0600 [facility] PRN Reason: Protocol Last Admin: 02/06/17 05:30 Dose: 30 mg Levothyroxine Sodium (Synthroid) 25 mcg PO 0630 [facility] PRN Reason: Protocol Last Admin: 02/06/17 05:30 Dose: 25 mcg Lorazepam (Ativan) 0.5 mg PO DAILY PRN; Protocol PRN Reason: Anxiety Losartan Potassium (Cozaar) 100 mg PO DAILY [facility] PRN Reason: Protocol Last Admin: 02/05/17 10:01 Dose: 100 mg Mupirocin (Bactroban Ointment) 0 gm TOP BID [facility] Last Admin: 02/05/17 17:35 Dose: 1 applic Oxycodone/Acetaminophen (Percocet 5/325 Mg Tab) 1 tab PO TID PRN; Protocol PRN Reason: Pain, moderate (4-7) Stop: 02/06/17 10:01 Last Admin: 02/05/17 15:45 Dose: 1 tab Pantoprazole Sodium (Protonix Ec Tab) 40 mg PO 0630 [facility] PRN Reason: Protocol Last Admin: 02/06/17 05:30 Dose: 40 mg Polyethylene Glycol (Miralax) 17 gm PO BID [facility] Last Admin: 02/05/17 17:35 Dose: 17 gm Sodium Bicarbonate (Sodium Bicarbonate Tab) 650 mg PO BID [facility] Last Admin: 02/05/17 17:36 Dose: 650 mg - Labs Labs: 02/06/17 07:00 02/06/17 07:00 - Constitutional Appears: No Acute Distress - Head Exam Head Exam: ATRAUMATIC, NORMOCEPHALIC - Respiratory Exam Respiratory Exam: Clear to Ausculation Bilateral, NORMAL BREATHING PATTERN - Cardiovascular Exam Cardiovascular Exam: +S1, +S2 - GI/Abdominal Exam GI & Abdominal Exam: Soft, Normal Bowel Sounds. absent: Tenderness - Neurological Exam Neurological Exam: Abnormal Gait, Alert, Awake - Skin Additional comments: abrasions of left and right arm Assessment and Plan - Assessment and Plan (Free Text) Assessment: s/p fall Acute on chronic kidney disease CAD PVD H/O ischemic toes Anemia Severe osteoarthritis COPD Plan: Patient is complaining of pain. However, she does not want pain medicine as it constipates her. continue Miralax twice a day. Patient had a bowel movement yesterday. Will discontinue all pain medicine. continue physical therapy. Acute kidney injury is resolved. monitor off IVFs. continue ASA and Plavix for coronary artery disease. Patient had elevated troponin, but due to chronic kidney disease, patient is unable to go for catheterization. continue medical management.
[2017-02-06] MEDS: POLYETHYLENE GLYCOL 3350 17 GM/Dose PACKET PO SCH ×2 (09:37→17:59)
[2017-02-06] MEDS ORDERED: Darbepoetin Alfa 60 mcg/ml Inj SC ONE (15:14)
--- NOTE | 2017-02-06 17:00 | PN ---
DATE: 02/06/2017 SUBJECTIVE: The patient is seen lying in bed. She is comfortable. She does not appear to be in any kind of distress. PHYSICAL EXAMINATION: Vital signs: Blood pressure 124/74, heart rate 91, respiratory rate 20, temperature 97.6. HEENT: Normocephalic, atraumatic, positive pallor. Neck: Supple, no JVD. Lungs: Bilateral equal entry, bilateral rhonchi. Cardiac: S1 and S2, regular rate and rhythm, no murmur, no rub. Abdomen: Soft, nondistended, nontender, bowel sounds present. Extremities: No lower extremity edema. LABORATORY DATA: WBC 11.6, hemoglobin 9.5, hematocrit 29, platelets 333. Sodium 138, potassium 4.5, chloride 111, CO2 21, BUN 25, creatinine 1.8, glucose 86, calcium 9.5, phosphorus 2.6, magnesium 1.9, albumin 2.7. CURRENT MEDICATIONS: Aspirin, Ativan, Bactroban, Cozaar 100, Imdur, Lipitor, MiraLax, amlodipine, Plavix, Protonix, sodium bicarbonate, Synthroid. ASSESSMENT: 1. Resolved acute kidney injury, 2. Stable chronic kidney disease, stage IV. 3. Anemia of chronic kidney disease. 5. Hypertension. 5. Dementia. 6. Malnutrition. PLAN: 1. The patient is status post Venofer x3 bags. 2. Aranesp 100 mcg subQ x1 dose. 3. Continue current antihypertensives. 4. Physical therapy. 5. Continue phosphate binders. Kia Villanueva MD
--- NOTE | 2017-02-06 17:45 | PN ---
DATE: 02/06/2017 LOCATION: The patient is in room 316, bed 1. REASON FOR CONSULTATION AND FOLLOWUP: Coronary artery disease, positive troponin and renal insufficiency. SUBJECTIVE: The patient is lying comfortably in bed without any chest pain, shortness of breath or palpitation. PHYSICAL EXAMINATION VITAL SIGNS: Blood pressure is 124/74, respiratory rate 20, pulse 91 and temperature 97.6. HEENT: Head is normocephalic. Eyes; pupils normal. Conjunctivae slightly pale. NECK: JVP low. Carotids equal. Thorax: AP diameter normal. LUNGS: Clear. CARDIOVASCULAR: S1 and S2. ABDOMEN: Soft, nontender, no organomegaly. Bowel sounds normal. EXTREMITIES: No clubbing and no cyanosis. LABORATORY DATA: WBC 11.6, hemoglobin 9.5, hematocrit 29.1 and platelets 333. Sodium 138, potassium 4.5, BUN 25 and creatinine 1.8. Calcium, phosphorus and magnesium are normal. AST and ALT normal. DIAGNOSES: Chronic kidney disease, hypertension, peripheral vascular disease and hyperlipidemia. The patient was admitted on medical floor for near syncope and borderline positive troponin, was elevated, probably it was secondary to renal insufficiency. On echo, ejection fraction 35% to 40%. The patient also had rhabdomyolysis due to . The patient is now in transitional care unit for deconditioning and physical therapy. We will continue aspirin, losartan, isosorbide mononitrate 30 daily, atorvastatin and levothyroxine. The patient clinically is not having any anginal symptoms. We will continue to treat medically. We will follow. Neelima Chaidez MD
[2017-02-06] MEDS: Benzocaine/Menthol (Cepacol) Lozenge MT PRN (18:01)
[2017-02-07] MEDS: Albuterol-Ipratrop 3 mg / 0.5 (3 ml) UD IH SCH ×4 (02:00→20:47)
[2017-02-07] MEDS: Pantoprazole 40 mg EC Tab PO SCH (05:32)
[2017-02-07] MEDS: Levothyroxine 25 MCG TAB PO SCH (05:32)
[2017-02-07] MEDS: Oxycodone/Acetaminophen 5/325 mg Tab PO PRN ×2 (06:45→21:25)
[2017-02-07 07:56] LABS: HEMOGLOBIN 14.1 g/dL (12.0-16.0); MEAN CELL VOLUME 89.6 fl (80.0-105.0); MEAN CORPUSCULAR HEMOGLOBIN 29.9 pg (25.0-35.0); MEAN CORPUSCULAR HGB CONC 33.4 g/dl (31.0-37.0); MEAN PLATELET VOLUME 11.1 fl (7.0-11.0); RBC 4.71 10^6/uL (3.5-6.1); RED CELL DISTRIBUTION WIDTH 13.9 % (11.5-14.5); WHITE BLOOD COUNT 5.8 10^3/ul (4.5-11.0)
[2017-02-07 08:13] LABS: ALB/GLOB RATIO 1.4 (1.1-1.8); ALBUMIN 3.4 g/dL (3.0-4.8); ALT/SGPT 37 U/L (7-56); AST/SGOT 29 U/L (15-39); BLOOD UREA NITROGEN 20 mg/dL (7-21); CALCIUM 9.1 mg/dL (8.4-10.5); GFR AFRICAN-AMERICAN > 60; GFR NON-AFRICAN AMERICAN > 60
--- NOTE | 2017-02-07 08:19 | CP.PCM.PN ---
Subjective - Date & Time of Evaluation Date of Evaluation: 02/07/17 Time of Evaluation: 08:00 - Subjective Subjective: Patient is seen this morning. She was complaining of pain earlier this morning and was given one Percocet. Objective - Vital Signs/Intake and Output Vital Signs (last 24 hours): Temp Pulse Resp BP Pulse Ox 98.7 F 73 14 115/68 97 02/06/17 16:07 02/06/17 16:07 02/06/17 16:07 02/06/17 16:07 02/05/17 16:17 - Medications Medications: Current Medications Albuterol/Ipratropium (Duoneb 3 Mg/0.5 Mg (3 Ml) Ud) 3 ml IH [id number] [facility] Last Admin: 02/07/17 07:31 Dose: Not Given Amlodipine Besylate (Norvasc) 10 mg PO DAILY [facility] PRN Reason: Protocol Last Admin: 02/06/17 09:40 Dose: 10 mg Aspirin (Aspirin Chewable) 81 mg PO 0800 [facility] PRN Reason: Protocol Last Admin: 02/06/17 08:07 Dose: 81 mg Atorvastatin Calcium (Lipitor) 80 mg PO 1800 [facility] PRN Reason: Protocol Last Admin: 02/06/17 17:59 Dose: 80 mg Benzocaine/Menthol (Cepacol Sore Throat) 1 hodan MT Q2H PRN PRN Reason: Sore Throat Last Admin: 02/06/17 18:01 Dose: 1 hodan Clopidogrel Bisulfate (Plavix) 75 mg PO DAILY [facility] PRN Reason: Protocol Last Admin: 02/06/17 09:38 Dose: 75 mg Isosorbide Mononitrate (Imdur) 30 mg PO 0600 [facility] PRN Reason: Protocol Last Admin: 02/07/17 05:32 Dose: 30 mg Levothyroxine Sodium (Synthroid) 25 mcg PO 0630 [facility] PRN Reason: Protocol Last Admin: 02/07/17 05:32 Dose: 25 mcg Lorazepam (Ativan) 0.5 mg PO DAILY PRN; Protocol PRN Reason: Anxiety Losartan Potassium (Cozaar) 100 mg PO DAILY [facility] PRN Reason: Protocol Last Admin: 02/06/17 09:38 Dose: 100 mg Mupirocin (Bactroban Ointment) 0 gm TOP BID [facility] Last Admin: 02/06/17 17:59 Dose: 1 applic Oxycodone/Acetaminophen (Percocet 5/325 Mg Tab) 1 tab PO BID PRN; Protocol PRN Reason: Pain, moderate (4-7) Stop: 02/10/17 06:32 Last Admin: 02/07/17 06:45 Dose: 1 tab Pantoprazole Sodium (Protonix Ec Tab) 40 mg PO 0630 [facility] PRN Reason: Protocol Last Admin: 02/07/17 05:32 Dose: 40 mg Polyethylene Glycol (Miralax) 17 gm PO BID [facility] Last Admin: 02/06/17 17:59 Dose: 17 gm Sodium Bicarbonate (Sodium Bicarbonate Tab) 650 mg PO BID [facility] Last Admin: 02/06/17 18:00 Dose: 650 mg - Labs Labs: 02/07/17 07:50 02/06/17 07:00 - Constitutional Appears: No Acute Distress - Head Exam Head Exam: ATRAUMATIC, NORMOCEPHALIC - Respiratory Exam Respiratory Exam: Clear to Ausculation Bilateral, NORMAL BREATHING PATTERN - Cardiovascular Exam Cardiovascular Exam: +S1, +S2 - GI/Abdominal Exam GI & Abdominal Exam: Soft, Normal Bowel Sounds. absent: Tenderness - Neurological Exam Neurological Exam: Alert, Awake Assessment and Plan - Assessment and Plan (Free Text) Assessment: Gait dysfunction COPD CKD Arthritis Constipation Plan: Patient will be given Percocet twice a day as needed for pain continue physical therapy continue Miralax for constipation
[2017-02-07] MEDS: POLYETHYLENE GLYCOL 3350 17 GM/Dose PACKET PO SCH ×2 (11:45→18:04)
[2017-02-07 13:13] LABS: CALCIUM 9.6 mg/dL (8.4-10.5)
[2017-02-07 13:27] LABS: BASO # 0.03 K/mm3 (0.0-2.0); BASO % 0.3 % (0.0-3.0); EOS # 0.2 (0.0-0.7); GRAN # 8.08 (1.4-6.5); GRAN % 81.1 % (50.0-68.0); LYMPH # 0.9 (1.2-3.4); LYMPH % 8.9 % (22.0-35.0); MEAN CELL VOLUME 88.8 fl (80.0-105.0); MEAN CORPUSCULAR HEMOGLOBIN 28.5 pg (25.0-35.0); MEAN CORPUSCULAR HGB CONC 32.1 g/dl (31.0-37.0); MEAN PLATELET VOLUME 9.2 fl (7.0-11.0); MONO # 0.8 (0.1-0.6); MONO % 7.7 % (1.0-6.0); PLATELET COUNT 360 10^3/uL (120.0-450.0); RBC 3.47 10^6/uL (3.5-6.1); RED CELL DISTRIBUTION WIDTH 15.8 % (11.5-14.5)
--- NOTE | 2017-02-07 13:30 | PN ---
DATE: 02/07/2017 SUBJECTIVE: The patient is seen sitting in chair. She is awake. She is alert. She is comfortable. She reports she is feeling much better. PHYSICAL EXAMINATION General: Elderly lady sitting in chair. Vital Signs: Blood pressure 120/72, heart rate 76, respiratory rate 20, temperature 98.4. HEENT: Normocephalic, atraumatic, positive pallor. Neck: Supple, no JVD. Lungs: Bilateral equal air entry, no rales, no rhonchi. Cardiac: S1, S2, regular rate and rhythm, no murmur, no rub. Abdomen: Soft, nondistended, nontender, bowel sounds present. Extremities: No lower extremity edema. LABORATORY DATA: WBC 5.8, hemoglobin 14, hematocrit 42, platelets 145. Sodium 132, potassium 4.2, chloride 95, CO2 29, BUN 20, creatinine 0.8?? CURRENT MEDICATIONS: Aspirin, Ativan, losartan 100, DuoNeb, Imdur, Lipitor, MiraLax, amlodipine, Percocet, Plavix, Protonix, sodium bicarbonate, Synthroid. ASSESSMENT/PLAN: 1. Acute kidney injury, superimposed on chronic kidney disease, stage 4, resolved acute kidney injury. 2. Anemia, hemoglobin went from 9.5 to 14?? 3. Suspect lab error. 4. Hypertension. 5. Dementia. PLAN: Repeat SMA-7 and BMP. Continue current management. Continue physical therapy, status post Venofer. Kia Villanueva MD
[2017-02-07 13:45] LABS: HEMOGLOBIN 9.9 g/dL (12.0-16.0)
--- NOTE | 2017-02-07 15:41 | PN ---
DATE: 02/07/2017 ROOM: Patient room 316, bed 1. REASON FOR CONSULTATION: Follow up coronary artery disease, positive troponin with renal insufficiency. SUBJECTIVE: The patient is lying flat in bed without chest pain, shortness of breath, or palpitation. PHYSICAL EXAMINATION: VITAL SIGNS: Blood pressure 120/72, respiratory rate 20, pulse 76 and temperature 98.4. HEENT: Head is normocephalic. Eyes; pupils normal. Conjunctivae normal. Nose and throat normal. NECK: JVP low. Carotids equal. Thorax: AP diameter normal. LUNGS: Clear. CARDIOVASCULAR: S1 and S2. ABDOMEN: Soft. No tenderness. No organomegaly. Bowel sounds normal. EXTREMITIES: No clubbing. No cyanosis. LABORATORY DATA: Shows WBC 5.8, hemoglobin 14.1, hematocrit 42.2 and platelets 145. Sodium 132, potassium 4.2, BUN 20 and creatinine 0.8. AST and ALT normal. Total protein and albumin normal. DIAGNOSES: Chronic kidney disease, hypertension, peripheral vascular disease, and hyperlipidemia. The patient was admitted on the medical floor for near syncope and borderline positive troponin, which can be elevated probably secondary to renal insufficiency. On echocardiogram ejection fraction 35% to 40%. The patient also had rhabdomyolysis at the time of admission. PLAN: The patient is in transitional care unit now getting physical therapy for deconditioning. The patient is symptomatic from cardiac point of view. It is possible that troponin slight elevation was related to renal dysfunction. We will continue to treat the patient medically. The patient is already on Plavix 75 mg daily, Synthroid 25 mcg daily, amlodipine 10 mg daily, Protonix 40 daily, sodium bicarbonate tablet 650 p.o. b.i.d., isosorbide mononitrate 30, Losartan, which is Cozaar 100 mg daily, and aspirin 81 daily. We will continue this therapy and continue physical therapy. We will follow with you. Neelima Chaidez MD
[2017-02-08] MEDS: Albuterol-Ipratrop 3 mg / 0.5 (3 ml) UD IH SCH ×3 (01:11→13:12)
[2017-02-08] MEDS: Pantoprazole 40 mg EC Tab PO SCH (05:32)
[2017-02-08] MEDS: Levothyroxine 25 MCG TAB PO SCH (05:32)
[2017-02-08 09:07] VITALS: RESP 18
[2017-02-08] MEDS: POLYETHYLENE GLYCOL 3350 17 GM/Dose PACKET PO SCH (12:04)
[2017-02-08 12:14] VITALS: BP 90/57; PULSE 81; TEMP 97.1; O2SAT 96
--- NOTE | 2017-02-08 15:17 | PN ---
DATE: LOCATION: The patient is in the transitional care unit room 316, bed 1. SUBJECTIVE: She was admitted for rehabilitation, wound care for abrasions and lacerations of the arm. The patient has a syncope. She was found on the floor and brought in to the emergency room. The patient was seen this morning. Pans have been made for her to go to [facility], but she seem to be resistant and does not want to go to [facility] at this time. PHYSICAL EXAMINATION: VITAL SIGNS: Pulse is 54, blood pressure is 100/60 and temperature 98.4. HEART: Normal sinus rhythm. S1 and S2 present. LUNGS: Clear. ABDOMEN: Soft. Liver and spleen not palpable. DOCTOR NATUROPATHIC EXAMINATION: No focal neurological deficits clinically, but the patient had difficulty in walking. She needs physical therapy and rehabilitation and wound care. MEDICATIONS: The patient's medications consist of aspirin 81 mg daily, Ativan 0.5 mg p.r.n. She has Losartan 100 mg daily, DuoNeb for respiratory treatment, Imdur 30 mg daily, Lipitor 80 mg daily, amlodipine 10 mg daily. The patient is on Percocet 5/325 b.i.d. for pain as needed only. The patient is on Plavix 75 mg daily, pantoprazole 40 mg daily, 600 mg sodium bicarbonate for renal problems, Synthroid 25 mcg daily. ASSESSMENT AND PLAN: The patient is clinically improved, but the patient needs further rehabilitation. She was advised strongly that she should go to [facility], but she is holding on to the fact that she does not want to go there. research worker encyclopedia is working with her today. Hopefully, she will be able to change her mind. Quita Green MD MTDD
--- NOTE | 2017-02-09 00:23 | PN ---
DATE: 02/08/2017 LOCATION: The patient in on room 316, bed 1. REASON FOR CONSULTATION: Coronary artery disease, positive troponin with renal insufficiency. SUBJECTIVE: The patient is sitting in chair without any chest pain, shortness of breath, palpitation. PHYSICAL EXAMINATION: VITAL SIGNS: Blood pressure 90/57, respirations 18, pulse 81, and temperature 97.1. HEENT: Head is normocephalic. Eyes; pupils normal. Conjunctivae, slightly pale. NECK: JVP low. Carotids equal. Thorax: AP diameter normal. LUNGS: Clear. CARDIOVASCULAR: S1 and S2. ABDOMEN: Soft. No tenderness. No organomegaly. Bowel sounds normal. EXTREMITIES: No clubbing. No cyanosis. LABORATORY DATA: WBC 10.0, hemoglobin 9.9, hematocrit 30.8, and platelets 360. Sodium 139, potassium 4.3, BUN 24, creatinine 1.8, random glucose 117, calcium 9.6. AST and ALT normal. Total protein and albumin normal. DIAGNOSES: Chronic kidney disease, hypertension, peripheral vascular disease, and hyperlipidemia. The patient's troponin is borderline on medical floor, but the patient has renal insufficiency that can also give false elevation to troponin. Also, the patient did not have any chest pain. On echocardiogram, ejection fraction 35% to 40%. The patient also had rhabdomyolysis at the time of admission. PLAN: The patient is asymptomatic from cardiac point of view, getting physical therapy, no chest pain. It was decided to treat the patient medically and we will continue present therapy and we will continue to follow with you and continue physical therapy. Neelima Chaidez MD
--- NOTE | 2017-02-09 13:04 | PN ---
DATE: 02/08/2017 SUBJECTIVE: The patient is seen sitting in chair. She is awake. She is alert. She is comfortable. She denies any pain. She denies any shortness of breath. PHYSICAL EXAMINATION: GENERAL: Elderly lady sitting in chair. VITAL SIGNS: Blood pressure 90/57, heart rate 81, respiratory rate 18, temperature 97.1. HEENT: Normocephalic, atraumatic. NECK: Supple, no JVD. LUNGS: Bilateral equal air entry, bilateral rhonchi, no rales. CARDIAC: S1 and S2. Regular rate and rhythm. No murmur, no rub. ABDOMEN: Soft, nondistended, nontender. Bowel sounds present. EXTREMITIES: No lower extremity edema. INTAKE AND OUTPUT: Not charted. LABORATORY DATA: No new labs. MEDICATIONS LIST: Reviewed. ASSESSMENT AND PLAN 1. Resolved acute kidney injury. 2. Stable chronic renal disease, stage IV. 3. Hypertension. 4. Peripheral vascular disease. 5. Dementia. PLAN 1. Stable renal function. 2. Continue physical therapy. 3. No objection to discharge. Kia Villanueva MD
--- NOTE | 2017-02-10 14:55 | DS ---
HISTORY OF PRESENT ILLNESS: This is an 86-year-old female with history of chronic kidney disease, severe osteoarthritis, cerebrovascular disease, peripheral vascular disease who presented to the emergency room after syncope. The patient had fallen out of her bed at home and was lying there for 4 days. Her CPK enzymes were elevated. Then, she was treated on the acute medical floor with IV fluids, wound care and then transferred to the transitional care unit for deconditioning, rehab and continued medical management. While in the transitional care unit, the patient was constipated due to the pain medication. She required Fleets Enema and started on MiraLax 17 g twice a day. The patient participated in physical therapy, but she still needed further help to be steady on her feet, especially as the patient wanted to walk without any devices. She was still using the rolling walker and needed help. While she was there, the patient also did not have any care setup for her so she was discharged to subacute rehab for further physical therapy. DISCHARGE DIAGNOSES: 1. Status post fall, abrasions of the arms. 2. Acute on chronic kidney disease. 3. Peripheral vascular disease and arthritis. DISCHARGE MEDICATIONS: Aspirin 81 mg daily, Ativan 0.5 mg daily as needed for anxiety, Bactroban ointment to the abrasions on the arm, clonidine, Cozaar 100 mg daily, DuoNeb q. 6 hours, Flonase 2 sprays each nostril daily, Imdur 30 mg daily, Lasix 20 mg daily, Lipitor 80 mg daily, Miralax 17 g twice a day, nicotine patch 14 mg daily, Norvasc 10 mg daily, Percocet 5/325 twice a day as needed for pain, Plavix 75 mg daily, albuterol 90 mcg q. 6 hours as needed, Protonix 40 mg daily, sodium bicarbonate 650 twice a day, Synthroid 25 mcg daily, Tegretol 2, Zemplar 1 cap every other day, Zyloprim 100 mg daily. The patient will be followed up at [facility]. Jolynn Green MD
== END 2017-02-08 14:32 | DRG 682 ==
LOC: TRCU 14:42
PROVIDERS: ADMIT Internal Medicine; ATTEND Internal Medicine
PROC: F07Z9FZ Gait Training/Functional Ambulation Treatment using Assistive, Adaptive, Supportive or Protective Equipment (ICD-10-PCS; principal; 2017-02-02)
PROC: F07M6ZZ Therapeutic Exercise Treatment of Musculoskeletal System - Whole Body (ICD-10-PCS; 2017-02-02)
PROC: F08Z2ZZ Grooming/Personal Hygiene Treatment (ICD-10-PCS; 2017-02-03)
PROC: F08Z1ZZ Dressing Techniques Treatment (ICD-10-PCS; 2017-02-03)
PROC: F08Z0ZZ Bathing/Showering Techniques Treatment (ICD-10-PCS; 2017-02-03)
PROC: F08Z4ZZ Home Management Treatment (ICD-10-PCS; 2017-02-03)
DX: N17.9 Acute kidney failure, unspecified (principal); J69.0 Pneumonitis due to inhalation of food and vomit; E11.52 Type 2 diabetes mellitus with diabetic peripheral angiopathy with gangrene; E46 Unspecified protein-calorie malnutrition; I12.0 Hypertensive chronic kidney disease with stage 5 chronic kidney disease or end stage renal disease; I24.9 Acute ischemic heart disease, unspecified; M62.82 Rhabdomyolysis; W19.XXXA Unspecified fall, initial encounter; E11.22 Type 2 diabetes mellitus with diabetic chronic kidney disease; N18.5 Chronic kidney disease, stage 5; E20.9 Hypoparathyroidism, unspecified; E03.9 Hypothyroidism, unspecified; E78.5 Hyperlipidemia, unspecified; D50.9 Iron deficiency anemia, unspecified; D63.1 Anemia in chronic kidney disease; F03.90 Unspecified dementia, unspecified severity, without behavioral disturbance, psychotic disturbance, mood disturbance, and anxiety; I25.10 Atherosclerotic heart disease of native coronary artery without angina pectoris; F17.200 Nicotine dependence, unspecified, uncomplicated; I27.2 Other secondary pulmonary hypertension; I08.3 Combined rheumatic disorders of mitral, aortic and tricuspid valves; I67.9 Cerebrovascular disease, unspecified; I70.1 Atherosclerosis of renal artery; J44.9 Chronic obstructive pulmonary disease, unspecified; K27.9 Peptic ulcer, site unspecified, unspecified as acute or chronic, without hemorrhage or perforation; K59.00 Constipation, unspecified; M19.90 Unspecified osteoarthritis, unspecified site; N25.81 Secondary hyperparathyroidism of renal origin; S41.119A Laceration without foreign body of unspecified upper arm, initial encounter; R55 Syncope and collapse; Y95 Nosocomial condition; Z86.73 Personal history of transient ischemic attack (TIA), and cerebral infarction without residual deficits; Z90.49 Acquired absence of other specified parts of digestive tract; Z95.5 Presence of coronary angioplasty implant and graft; Z96.641 Presence of right artificial hip joint; Z87.19 Personal history of other diseases of the digestive system; Z88.0 Allergy status to penicillin; Z87.892 Personal history of anaphylaxis; T14.8 Other injury of unspecified body region; Z91.81 History of falling; S40.812A Abrasion of left upper arm, initial encounter; S40.811A Abrasion of right upper arm, initial encounter; R26.2 Difficulty in walking, not elsewhere classified